=== PATIENT | male | born 1945 | race Caucasian/White ===

== ENCOUNTER 2016-12-30 13:03 | Emergency (ER) | payer MEDICARE, OTHER ==
[~2016-12-30] VITALS: Ht 170.1 cm; Wt 158.8 kg
[2016-12-30 13:50] LABS: BASO # 0.1 10*3/uL (0.0-0.1); BASO % 0.5 % (0.0-1.0); EOS # 0.2 10*3/uL (0.0-0.4); EOS % 2.1 % (1.0-4.0); HEMATOCRIT 37.9 % (42.0-52.0); HEMOGLOBIN 12.5 g/dl (14.0-18.0); LYMPH # 2.1 10*3/uL (1.3-4.4); LYMPH % 23.2 % (27.0-41.0); MEAN CELL VOLUME 96.2 fl (80.0-94.0); MEAN CORPUSCULAR HGB 31.7 pg (27.0-31.0); MEAN PLATELET VOLUME 8.4 fl (9.6-12.3); MONO # 0.7 10*3/uL (0.1-1.0); MONO % 7.2 % (3.0-9.0); NEUT # 6.1 10*3/uL (2.3-7.9); NEUT % 66.6 % (47.0-73.0); PLATELET COUNT AUTOMATED 230 10*3/uL (130-400); RED BLOOD COUNT 3.94 10*6/uL (4.50-5.90); RED CELL DISTRI WIDTH 13.3 % (0-14.5); WHITE BLOOD COUNT 9.2 10*3/uL (4.8-10.8)
== END 2016-12-30 15:40 | disposition home or self-care (01) ==
LOC: ED 13:03
PROVIDERS: Emergency Medicine
DX: R04.0 Epistaxis (principal)

== ENCOUNTER 2018-07-24 17:05 | Emergency (ER) | payer MEDICARE, OTHER ==
[~2018-07-24] VITALS: Ht 170.1 cm; Wt 168.5 kg
--- NOTE | ~2018-07-24 | EKG ---
[place], [place] ELECTROCARDIOGRAM REPORT NAME: CARTER NGO UNIT #: [id number] ROOM: DOCTOR: EPIPHANY DRAFT REPORT BIRTHDATE: [birth year] [facility] Test Date: 2018-07-24 Test Time: 17:08:59 Pat Name: CARTER GNO Department: Room: ER- Gender: M [employer] Attendant: Dot Shultz : 1945 Requested By: NE CARRILLO Order Number: [id number] Reading MD: Isaiah Damon MD Measurements Intervals [place] Rate: 95 P: -41 CO: 166 QRS: 19 QRSD: 119 T: 45 QT: 357 QTc: 449 Interpretive Statements Sinus rhythm Incomplete right bundle branch block Electronically Signed On 07-28-2018 9:34:47 PDT by Isaiah Damon MD CM:EKGRPT:ELECTROCARDIOGRAM REPORT [id number] NE GUERRERO DRAFT REPORT NE CARRILLO M.D.
--- NOTE | ~2018-07-24 | EKG ---
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
[2018-07-24] MEDS ORDERED: ALTACE10 MG PO (17:25)
[2018-07-24] MEDS ORDERED: FUROSEMIDE40 MG PO (17:25)
[2018-07-24] MEDS ORDERED: METOPROLOL SUCC50 M1 PO (17:27)
[2018-07-24 17:28] LABS: BASO % 0.3 % (0.0-1.0); EOS % 0.2 % (1.0-4.0); HEMATOCRIT 38.2 % (42.0-52.0); HEMOGLOBIN 12.4 g/dl (14.0-18.0); LYMPH # 1.5 10*3/uL (1.3-4.4); LYMPH % 13.3 % (27.0-41.0); MEAN CELL VOLUME 99.7 fl (80.0-94.0); MEAN CORPUSCULAR HGB 32.4 pg (27.0-31.0); MEAN CORPUSCULAR HGB CONC 32.5 g/dl (33.0-37.0); MEAN PLATELET VOLUME 8.5 fl (9.6-12.3); MONO # 1.2 10*3/uL (0.1-1.0); MONO % 10.6 % (3.0-9.0); NEUT # 8.2 10*3/uL (2.3-7.9); PLATELET COUNT AUTOMATED 209 10*3/uL (130-400); RED BLOOD COUNT 3.83 10*6/uL (4.50-5.90); RED CELL DISTRI WIDTH 14.2 % (0-14.5); WHITE BLOOD COUNT 10.9 10*3/uL (4.8-10.8)
[2018-07-24] MEDS ORDERED: TIKOSYN500 MCG PO (17:29)
[2018-07-24] MEDS ORDERED: LIPITOR40 MG PO (17:29)
[2018-07-24] MEDS ORDERED: EFFER-K20 MEQ PO (17:29)
[2018-07-24] MEDS ORDERED: WARFARIN SOD5 MG PO (17:30)
[2018-07-24] MEDS ORDERED: ASPIR LOW81 MG PO (17:30)
[2018-07-24] MEDS ORDERED: FLOMAX0.4 MG PO (17:31)
[2018-07-24 17:40] LABS: ACT PARTIAL THROMBO TIME 37.4 SECONDS (20.0-32.1); INTERNATIONAL NORM RATIO 2.3 (2.0-3.5)
[2018-07-24 17:48] LABS: ALBUMIN 3.4 gm/dl (3.1-4.5); ALKALINE PHOSPHATASE 91 U/L (45-117); BUN 11 mg/dl (7-24); CHLORIDE 97 mmol/L (98-107); CREATININE 0.66 mg/dL (0.70-1.30); POTASSIUM 4.3 mmol/L (3.5-5.1); SGOT/AST 12 IU/L (3-35); SGPT/ALT 20 U/L (12-78); SODIUM 137 mmol/L (136-145); TOTAL PROTEIN 8.2 gm/dL (6.4-8.2)
[2018-07-24 17:52] LABS: TROPONIN I < 0.015 ng/ml (<0.045)
[2018-07-24 18:59] LABS: BILIRUBIN NEGATIVE (NEGATIVE); BLOOD 3+ (NEGATIVE); CLARITY CLEAR (CLEAR); COLOR YELLOW (YELLOW); GLUCOSE NEGATIVE (NEGATIVE); KETONE NEGATIVE (NEGATIVE); LEUKO ESTERASE 3+ (NEGATIVE); NITRITE POSITIVE (NEGATIVE); PH 8.5 (5.0-9.0); UROBILINOGEN 0.2 E.U./dl (0.2-1.0)
[2018-07-24 19:06] LABS: RBC TNTC rbc/hpf (0-2)
[2018-07-24 19:07] LABS: BACTERIA 4+; WBC TNTC wbc/hpf (0-5)
== END 2018-07-24 20:32 | disposition short-term general hospital (02) ==
LOC: ED 17:05
PROVIDERS: Emergency Medicine
DX: N39.0 Urinary tract infection, site not specified (principal); R26.2 Difficulty in walking, not elsewhere classified; R06.02 Shortness of breath; R53.1 Weakness; L30.9 Dermatitis, unspecified; Z79.899 Other long term (current) drug therapy; Z79.82 Long term (current) use of aspirin; Z79.01 Long term (current) use of anticoagulants

== ENCOUNTER 2019-01-24 12:00 | Emergency (ER) | payer MEDICARE, OTHER ==
[~2019-01-24] VITALS: Ht 170.1 cm; Wt 167.8 kg
[~2019-01-24 12:00] MED LIST: ALTACE10 MG PO; ASPIR LOW81 MG PO; EFFER-K20 MEQ PO; FLOMAX0.4 MG PO; FUROSEMIDE40 MG PO; LIPITOR40 MG PO; METOPROLOL SUCC50 M1 PO; TIKOSYN500 MCG PO; WARFARIN SOD5 MG PO
[2019-01-24] MEDS ORDERED: KEFLEX500 M1 PO (13:58)
== END 2019-01-24 14:55 | disposition home or self-care (01) ==
LOC: ED 12:00
DX: L89.613 Pressure ulcer of right heel, stage 3 (principal); I48.91 Unspecified atrial fibrillation; E78.5 Hyperlipidemia, unspecified; I10 Essential (primary) hypertension; Z79.899 Other long term (current) drug therapy; Z79.01 Long term (current) use of anticoagulants; Z79.82 Long term (current) use of aspirin; Z95.1 Presence of aortocoronary bypass graft

== ENCOUNTER 2019-05-08 01:59 | Inpatient (IN) | payer MEDICARE, OTHER ==
[~2019-05-08] VITALS: Ht 172.7 cm; Wt 148.1 kg
[2019-05-08] VITALS (8 sets, daily range): BP systolic 94–125; BP diastolic 58–94
[~2019-05-08 01:59] MED LIST changes: +KEFLEX500 M1 PO
[2019-05-08 02:22] LABS: BASO % 0.1 % (0.0-1.0); EOS % 0.1 % (1.0-4.0); HEMATOCRIT 39.9 % (42.0-52.0); LYMPH # 1.7 10*3/uL (1.3-4.4); LYMPH % 11.1 % (27.0-41.0); MEAN CELL VOLUME 97.1 fl (80.0-94.0); MEAN CORPUSCULAR HGB 31.6 pg (27.0-31.0); MEAN CORPUSCULAR HGB CONC 32.6 g/dl (33.0-37.0); MEAN PLATELET VOLUME 8.8 fl (9.6-12.3); MONO % 6.5 % (3.0-9.0); NEUT # 12.6 10*3/uL (2.3-7.9); NEUT % 81.6 % (47.0-73.0); PLATELET COUNT AUTOMATED 262 10*3/uL (130-400); RED BLOOD COUNT 4.11 10*6/uL (4.50-5.90); WHITE BLOOD COUNT 15.4 10*3/uL (4.8-10.8)
[2019-05-08 02:32] LABS: ACT PARTIAL THROMBO TIME 42.4 SECONDS (20.0-32.1); INTERNATIONAL NORM RATIO 3.6 (2.0-3.5)
[2019-05-08 02:38] LABS: ALBUMIN 3.5 gm/dl (3.1-4.5); ALKALINE PHOSPHATASE 93 U/L (45-117); BUN 22 mg/dl (7-24); CHLORIDE 102 mmol/L (98-107); CREATININE 1.14 mg/dL (0.70-1.30); POTASSIUM 3.7 mmol/L (3.5-5.1); SGOT/AST 317 IU/L (3-35); SGPT/ALT 57 U/L (12-78); SODIUM 138 mmol/L (136-145)
[2019-05-08 07:25] LABS: CLARITY SL CLOUDY (CLEAR); COLOR YELLOW (YELLOW)
[2019-05-08 07:26] LABS: BILIRUBIN NEGATIVE (NEGATIVE); BLOOD 3+ (NEGATIVE); GLUCOSE NEGATIVE (NEGATIVE); KETONE NEGATIVE (NEGATIVE); LEUKO ESTERASE NEGATIVE (NEGATIVE); NITRITE NEGATIVE (NEGATIVE); UROBILINOGEN 0.2 E.U./dl (0.2-1.0)
[2019-05-08 07:45] LABS: RBC 31-40 rbc/hpf (0-2)
[2019-05-08 07:46] LABS: BACTERIA 1+
[2019-05-08 09:23] LABS: ALBUMIN 3.4 gm/dl (3.1-4.5); ALKALINE PHOSPHATASE 87 U/L (45-117); BUN 22 mg/dl (7-24); CHLORIDE 101 mmol/L (98-107); CREATININE 0.75 mg/dL (0.70-1.30); SGOT/AST 321 IU/L (3-35); SGPT/ALT 58 U/L (12-78); SODIUM 137 mmol/L (136-145)
[2019-05-08 09:26] LABS: PHOSPHOROUS 4.2 mg/dL (2.5-4.9)
[2019-05-08] MEDS ORDERED: COUMADIN7.5 M1 PO (11:20)
[2019-05-08 21:11] LABS: BILIRUBIN NEGATIVE (NEGATIVE); BLOOD 2+ (NEGATIVE); CLARITY SL CLOUDY (CLEAR); COLOR YELLOW (YELLOW); GLUCOSE NEGATIVE (NEGATIVE); KETONE NEGATIVE (NEGATIVE); LEUKO ESTERASE NEGATIVE (NEGATIVE); NITRITE NEGATIVE (NEGATIVE); UROBILINOGEN 0.2 E.U./dl (0.2-1.0)
[2019-05-08 21:21] LABS: BACTERIA 2+; URIC ACID CRYSTALS 1+
[2019-05-09] VITALS: BP 148/82
[2019-05-09 04:00] VITALS: BP 122/74
[2019-05-09 04:44] LABS: BASO % 0.2 % (0.0-1.0); EOS # 0.1 10*3/uL (0.0-0.4); EOS % 0.9 % (1.0-4.0); HEMATOCRIT 34.5 % (42.0-52.0); HEMOGLOBIN 10.9 g/dl (14.0-18.0); LYMPH % 19.3 % (27.0-41.0); MEAN CELL VOLUME 99.7 fl (80.0-94.0); MEAN CORPUSCULAR HGB 31.5 pg (27.0-31.0); MEAN CORPUSCULAR HGB CONC 31.6 g/dl (33.0-37.0); MEAN PLATELET VOLUME 8.6 fl (9.6-12.3); MONO # 0.9 10*3/uL (0.1-1.0); MONO % 8.6 % (3.0-9.0); NEUT # 7.3 10*3/uL (2.3-7.9); NEUT % 70.7 % (47.0-73.0); PLATELET COUNT AUTOMATED 206 10*3/uL (130-400); RED BLOOD COUNT 3.46 10*6/uL (4.50-5.90); RED CELL DISTRI WIDTH 15.2 % (0-14.5); WHITE BLOOD COUNT 10.3 10*3/uL (4.8-10.8)
[2019-05-09 05:02] LABS: ALBUMIN 2.9 gm/dl (3.1-4.5); ALKALINE PHOSPHATASE 75 U/L (45-117); BUN 13 mg/dl (7-24); CHLORIDE 102 mmol/L (98-107); CHOLESTEROL 94 mg/dL (<200); CREATININE 0.47 mg/dL (0.70-1.30); HDL CHOLESTEROL 45 mg/dl (40-60); LDL CHOLESTEROL 18 mg/dL (9-159); POTASSIUM 3.7 mmol/L (3.5-5.1); SGOT/AST 169 IU/L (3-35); SGPT/ALT 46 U/L (12-78); SODIUM 137 mmol/L (136-145); TRIGLYCERIDES 155 mg/dl (<150); VLDL CHOLESTEROL 31 mg/dL (6-40)
[2019-05-09 05:03] LABS: INTERNATIONAL NORM RATIO 4.7 (2.0-3.5)
[2019-05-09 05:14] LABS: CPK 6777 U/L (39-308)
[2019-05-09 07:02] LABS: VITAMIN D, 25-HYDROXY 7.5 ng/mL (30-100)
[2019-05-09 08:00] VITALS: BP 123/73
[2019-05-09 12:00] VITALS: BP 130/74
[2019-05-09 20:00] VITALS: BP 129/74
[2019-05-10] VITALS: BP 123/64
[2019-05-10 04:00] VITALS: BP 123/68
[2019-05-10 05:11] LABS: ALBUMIN 2.8 gm/dl (3.1-4.5); ALKALINE PHOSPHATASE 72 U/L (45-117); BUN 9 mg/dl (7-24); CHLORIDE 101 mmol/L (98-107); CREATININE 0.34 mg/dL (0.70-1.30); PHOSPHOROUS 3.1 mg/dL (2.5-4.9); POTASSIUM 3.9 mmol/L (3.5-5.1); SGOT/AST 103 IU/L (3-35); SGPT/ALT 41 U/L (12-78); SODIUM 137 mmol/L (136-145); TOTAL PROTEIN 7.1 gm/dL (6.4-8.2)
[2019-05-10 06:17] LABS: BASO % 0.3 % (0.0-1.0); EOS # 0.2 10*3/uL (0.0-0.4); EOS % 2.1 % (1.0-4.0); HEMATOCRIT 32.7 % (42.0-52.0); HEMOGLOBIN 10.2 g/dl (14.0-18.0); LYMPH # 2.1 10*3/uL (1.3-4.4); LYMPH % 24.7 % (27.0-41.0); MEAN CELL VOLUME 100.3 fl (80.0-94.0); MEAN CORPUSCULAR HGB 31.3 pg (27.0-31.0); MEAN CORPUSCULAR HGB CONC 31.2 g/dl (33.0-37.0); MEAN PLATELET VOLUME 9.4 fl (9.6-12.3); MONO # 0.9 10*3/uL (0.1-1.0); NEUT # 5.4 10*3/uL (2.3-7.9); NEUT % 62.7 % (47.0-73.0); PLATELET COUNT AUTOMATED 212 10*3/uL (130-400); RED BLOOD COUNT 3.26 10*6/uL (4.50-5.90); RED CELL DISTRI WIDTH 15.3 % (0-14.5); WHITE BLOOD COUNT 8.6 10*3/uL (4.8-10.8)
[2019-05-10 06:27] LABS: INTERNATIONAL NORM RATIO 3.4 (2.0-3.5)
[2019-05-10 08:00] VITALS: BP 132/72
[2019-05-10 12:00] VITALS: BP 113/54
[2019-05-10 16:00] VITALS: BP 116/57
[2019-05-10 20:00] VITALS: BP 109/63
[2019-05-11] VITALS: BP 116/57
[2019-05-11 04:00] VITALS: BP 122/86
[2019-05-11 05:24] LABS: ALBUMIN 2.7 gm/dl (3.1-4.5); ALKALINE PHOSPHATASE 65 U/L (45-117); BUN 8 mg/dl (7-24); CHLORIDE 99 mmol/L (98-107); CREATININE 0.35 mg/dL (0.70-1.30); PHOSPHOROUS 3.5 mg/dL (2.5-4.9); POTASSIUM 3.8 mmol/L (3.5-5.1); SGOT/AST 70 IU/L (3-35); SGPT/ALT 40 U/L (12-78); SODIUM 137 mmol/L (136-145)
[2019-05-11 05:40] LABS: CPK 2302 U/L (39-308)
[2019-05-11 06:02] LABS: BASO % 0.4 % (0.0-1.0); EOS # 0.2 10*3/uL (0.0-0.4); EOS % 2.9 % (1.0-4.0); HEMATOCRIT 32.8 % (42.0-52.0); HEMOGLOBIN 10.4 g/dl (14.0-18.0); LYMPH # 1.9 10*3/uL (1.3-4.4); LYMPH % 25.2 % (27.0-41.0); MEAN CELL VOLUME 101.5 fl (80.0-94.0); MEAN CORPUSCULAR HGB 32.2 pg (27.0-31.0); MEAN CORPUSCULAR HGB CONC 31.7 g/dl (33.0-37.0); MEAN PLATELET VOLUME 9.4 fl (9.6-12.3); MONO # 0.8 10*3/uL (0.1-1.0); NEUT # 4.6 10*3/uL (2.3-7.9); NEUT % 61.2 % (47.0-73.0); PLATELET COUNT AUTOMATED 214 10*3/uL (130-400); RED BLOOD COUNT 3.23 10*6/uL (4.50-5.90); RED CELL DISTRI WIDTH 15.1 % (0-14.5); WHITE BLOOD COUNT 7.6 10*3/uL (4.8-10.8)
[2019-05-11 06:21] LABS: INTERNATIONAL NORM RATIO 2.6 (2.0-3.5)
[2019-05-11 08:00] VITALS: BP 126/72
[2019-05-11 12:00] VITALS: BP 138/82
[2019-05-11 16:00] VITALS: BP 112/63
[2019-05-11 20:00] VITALS: BP 134/73
[2019-05-12] VITALS: BP 128/61
[2019-05-12 04:48] LABS: BASO % 0.6 % (0.0-1.0); EOS # 0.2 10*3/uL (0.0-0.4); EOS % 3.2 % (1.0-4.0); HEMATOCRIT 32.5 % (42.0-52.0); HEMOGLOBIN 10.2 g/dl (14.0-18.0); LYMPH # 1.9 10*3/uL (1.3-4.4); LYMPH % 26.2 % (27.0-41.0); MEAN CELL VOLUME 102.2 fl (80.0-94.0); MEAN CORPUSCULAR HGB 32.1 pg (27.0-31.0); MEAN CORPUSCULAR HGB CONC 31.4 g/dl (33.0-37.0); MEAN PLATELET VOLUME 8.9 fl (9.6-12.3); MONO # 0.8 10*3/uL (0.1-1.0); MONO % 10.7 % (3.0-9.0); NEUT # 4.2 10*3/uL (2.3-7.9); PLATELET COUNT AUTOMATED 237 10*3/uL (130-400); RED BLOOD COUNT 3.18 10*6/uL (4.50-5.90); WHITE BLOOD COUNT 7.2 10*3/uL (4.8-10.8)
[2019-05-12 04:59] LABS: BUN 8 mg/dl (7-24); CHLORIDE 100 mmol/L (98-107); CREATININE 0.41 mg/dL (0.70-1.30); PHOSPHOROUS 3.8 mg/dL (2.5-4.9); POTASSIUM 3.9 mmol/L (3.5-5.1); SODIUM 138 mmol/L (136-145)
[2019-05-12 06:26] LABS: INTERNATIONAL NORM RATIO 1.9 (2.0-3.5)
[2019-05-12 08:00] VITALS: BP 155/91
[2019-05-12] MEDS ORDERED: ESCITALOPRAM OX10 MG PO (10:42)
[2019-05-12] MEDS ORDERED: WARFARIN SOD5 MG PO (10:42)
[2019-05-12] MEDS ORDERED: ALDACTONE25 MG PO (10:42)
[2019-05-12 12:00] VITALS: BP 110/57
== END 2019-05-12 15:48 | disposition other institution (70) | DRG 280 ==
LOC: ED 01:59 → 4E 03:38 → ICCU 03:38 → EDHOLD 03:38 → 4E 04:23 → ICCU 07:33
PROVIDERS: Emergency Medicine; Hospitalist; Internal Medicine; Internal Medicine Nephrology; ADMIT Family Medicine
PROC: 3E073KZ Introduction of Other Diagnostic Substance into Coronary Artery, Percutaneous Approach (ICD-10-PCS; principal; 2019-05-11)
PROC: 4A02XM4 Measurement of Cardiac Total Activity, External Approach (ICD-10-PCS; principal; 2019-05-11)
DX: I21.4 Non-ST elevation (NSTEMI) myocardial infarction (principal); J18.9 Pneumonia, unspecified organism; J96.01 Acute respiratory failure with hypoxia; I50.23 Acute on chronic systolic (congestive) heart failure; E87.2 Acidosis; E44.0 Moderate protein-calorie malnutrition; J44.0 Chronic obstructive pulmonary disease with (acute) lower respiratory infection; N17.9 Acute kidney failure, unspecified; I42.9 Cardiomyopathy, unspecified; R45.851 Suicidal ideations; Z68.42 Body mass index [BMI] 45.0-49.9, adult; L97.419 Non-pressure chronic ulcer of right heel and midfoot with unspecified severity; E78.00 Pure hypercholesterolemia, unspecified; G47.33 Obstructive sleep apnea (adult) (pediatric); R07.89 Other chest pain; I70.203 Unspecified atherosclerosis of native arteries of extremities, bilateral legs; B96.4 Proteus (mirabilis) (morganii) as the cause of diseases classified elsewhere; I11.0 Hypertensive heart disease with heart failure; T79.6XXA Traumatic ischemia of muscle, initial encounter; W18.30XA Fall on same level, unspecified, initial encounter; F32.9 Major depressive disorder, single episode, unspecified; I95.9 Hypotension, unspecified; I25.10 Atherosclerotic heart disease of native coronary artery without angina pectoris; E78.5 Hyperlipidemia, unspecified; I48.0 Paroxysmal atrial fibrillation; N40.0 Benign prostatic hyperplasia without lower urinary tract symptoms; M17.11 Unilateral primary osteoarthritis, right knee; R26.2 Difficulty in walking, not elsewhere classified; R74.0 Nonspecific elevation of levels of transaminase and lactic acid dehydrogenase [LDH]; R73.9 Hyperglycemia, unspecified; D53.9 Nutritional anemia, unspecified; E66.01 Morbid (severe) obesity due to excess calories; Z79.01 Long term (current) use of anticoagulants; Z87.440 Personal history of urinary (tract) infections; Z95.1 Presence of aortocoronary bypass graft; Z87.891 Personal history of nicotine dependence; Z81.1 Family history of alcohol abuse and dependence; Z80.8 Family history of malignant neoplasm of other organs or systems; Z79.82 Long term (current) use of aspirin; Z79.899 Other long term (current) drug therapy; Z71.3 Dietary counseling and surveillance

== ENCOUNTER 2020-02-06 18:02 | Emergency (ER) | payer MEDICARE, OTHER ==
[~2020-02-06] VITALS: Ht 200.6 cm; Wt 165.1 kg
[~2020-02-06 18:02] MED LIST changes: +ALDACTONE25 MG PO; +COUMADIN7.5 M1 PO; +ESCITALOPRAM OX10 MG PO
[2020-02-06 18:52] LABS: HEMATOCRIT 34.8 % (42.0-52.0); MEAN CELL VOLUME 108.4 fl (80.0-94.0); MEAN CORPUSCULAR HGB 32.7 pg (27.0-31.0); MEAN CORPUSCULAR HGB CONC 30.2 g/dl (33.0-37.0); MEAN PLATELET VOLUME 8.3 fl (9.6-12.3); PLATELET COUNT AUTOMATED 161 10*3/uL (130-400); RED BLOOD COUNT 3.21 10*6/uL (4.50-5.90); RED CELL DISTRI WIDTH 14.2 % (0-14.5); WHITE BLOOD COUNT 6.1 10*3/uL (4.8-10.8)
[2020-02-06 19:13] LABS: ALKALINE PHOSPHATASE 91 U/L (45-117); BUN 9 mg/dl (7-24); CHLORIDE 96 mmol/L (98-107); LIPASE 53 U/L (73-393); POTASSIUM 4.6 mmol/L (3.5-5.1); SGOT/AST 12 IU/L (3-35); SGPT/ALT 17 U/L (12-78); SODIUM 136 mmol/L (136-145); TOTAL PROTEIN 8.5 gm/dL (6.4-8.2)
[2020-02-06 19:14] LABS: BASOPHILS 1 % (0-1); TOTAL CELLS COUNTED 100 #CELLS; TROPONIN I < 0.015 ng/ml (<0.045)
[2020-02-06 19:15] LABS: PLATELET SUFFICIENCY NORMAL (NORMAL)
[2020-02-06 19:21] LABS: ACT PARTIAL THROMBO TIME 40.2 SECONDS (20.0-32.1); INTERNATIONAL NORM RATIO 1.8 (2.0-3.5)
[2020-02-06 20:03] LABS: BILIRUBIN Negative (Negative); BLOOD 1+ (Negative); CLARITY Cloudy (Clear); COLOR Yellow (Yellow); GLUCOSE Negative (Negative); KETONE Negative (Negative); LEUKO ESTERASE Negative (Negative); NITRITE Negative (Negative); SPECIFIC GRAVITY 1.015 (1.001-1.030)
[2020-02-06 20:11] LABS: BACTERIA TRACE; FINE GRANULAR CAST 0-2; RBC 41-50 rbc/hpf (0-2); WBC 0-2 wbc/hpf (0-5)
== END 2020-02-06 21:23 ==
LOC: ED 18:02
PROVIDERS: Nurse Practitioner Family
DX: U07.1 COVID-19 (principal); R41.0 Disorientation, unspecified; I25.2 Old myocardial infarction; E66.01 Morbid (severe) obesity due to excess calories; I11.0 Hypertensive heart disease with heart failure; I50.9 Heart failure, unspecified; I73.9 Peripheral vascular disease, unspecified; I48.91 Unspecified atrial fibrillation; J44.9 Chronic obstructive pulmonary disease, unspecified; E78.5 Hyperlipidemia, unspecified; M17.11 Unilateral primary osteoarthritis, right knee; Z79.899 Other long term (current) drug therapy; Z79.01 Long term (current) use of anticoagulants; Z79.82 Long term (current) use of aspirin; Z87.891 Personal history of nicotine dependence; Z68.41 Body mass index [BMI] 40.0-44.9, adult; Z98.61 Coronary angioplasty status

== ENCOUNTER 2020-02-08 18:57 | Inpatient (IN) | payer MEDICARE, OTHER ==
[~2020-02-08] VITALS: Ht 172.7 cm; Wt 152.6 kg
[2020-02-08 18:58] VITALS: BP 172/86
[2020-02-08 20:02] LABS: HEMATOCRIT 35.3 % (42.0-52.0); MEAN CORPUSCULAR HGB 32.7 pg (27.0-31.0); MEAN CORPUSCULAR HGB CONC 29.5 g/dl (33.0-37.0); MEAN PLATELET VOLUME 8.6 fl (9.6-12.3); PLATELET COUNT AUTOMATED 161 10*3/uL (130-400); RED BLOOD COUNT 3.18 10*6/uL (4.50-5.90); RED CELL DISTRI WIDTH 14.2 % (0-14.5); WHITE BLOOD COUNT 4.2 10*3/uL (4.8-10.8)
--- NOTE | 2020-02-08 20:04 | NUR ---
MD HESTER AT BEDSIDE TO ASSESS PT.PT O2 SAT 89-91% ON 6L O2 VIA NC.PER MD WILL MONITOR PT O2 SAT AT THIS TIME.PT REPOSITIONED IN BED.
--- NOTE | 2020-02-08 20:06 | NUR ---
PT DAUGHTER CALLED AND REPORT PT SEEN IN [place] AND DISCHARGED TODAY.DIAGNOSIS OF PNEUMONIA SHE REPORTS.DAUGHTER STATES PT IS TO BE ON 10-15L O2 VIA NC BUT DOES NOT BELIEVE NURSING FACILITY IS ABLE TO MAINTAIN PT O2 SAT AT THIS TIME.DAUGHTER IS CONCERNED FOR PT RETURN TO FACILITY IF THEY ARE UNABLE TO MANAGE HIS OXYGEN NEEDS.MD HESTER MADE AWARE OF DAUGHTER'S CONCERNS.
[2020-02-08 20:17] VITALS: BP 127/73
[2020-02-08 20:21] LABS: TOTAL CELLS COUNTED 100 #CELLS
[2020-02-08 20:22] LABS: PLATELET SUFFICIENCY NORMAL (NORMAL)
[2020-02-08 20:41] LABS: ALBUMIN 3.1 gm/dl (3.1-4.5); ALKALINE PHOSPHATASE 86 U/L (45-117); BUN 10 mg/dl (7-24); CHLORIDE 90 mmol/L (98-107); POTASSIUM 4.5 mmol/L (3.5-5.1); SGOT/AST 14 IU/L (3-35); SGPT/ALT 17 U/L (12-78); SODIUM 134 mmol/L (136-145); TOTAL PROTEIN 9.1 gm/dL (6.4-8.2)
[2020-02-08 20:44] LABS: TROPONIN I < 0.015 ng/ml (<0.045)
--- NOTE | 2020-02-08 21:05 | NUR ---
PT LORRAINE PROVIDED UPDATE ON PT AND ADVISED OF CURRENT PLAN OF CARE TO OBTAIN ADDITIONAL LAB WORK.
--- NOTE | 2020-02-08 21:48 | NUR ---
PT LINENS CHANGED.WOUND CHECK COMPLETED.PT APPEARS TO HAVE MULTIPLE AREAS OF RED RASH LIKE PSORIASIS ON HIS TORSO AND LEGS.PHOTOS TAKEN OF MOISTURE ASSOC RASH ON ABD FOLDS.PRESSURE WOUNDS ON COCCYX AND BUTTOCK.RASH ON LOWER POSTERIOR THIGH AREAS.RASH ON LOWER BACK.
[2020-02-08 22:02] LABS: ABG BASE EXCESS 14.3 mmol/L (-2.0-2.0); ARTERIAL BLOOD GAS PH 7.306 (7.35-7.45)
--- NOTE | 2020-02-08 22:15 | NUR ---
RESPIRATORY AT BEDSIDE AND STATE PT WAS PLACED ON 15L HIGH FLOW CANNULA AT THIS TIME.RESPIRATORY WAS UPDATED PER MD HESTER PT IS TO BE PLACED ON BIPAP DUE TO ABG RESULTS.ADVISED THEY WILL TRY TO OBTAIN MACHINE FOR PT.
[2020-02-08 22:16] VITALS: BP 132/65
--- NOTE | 2020-02-08 22:35 | NUR ---
PT DAUGHTER UPDATED ON PT CURRENT PLAN OF CARE AND ADMISSION.
--- NOTE | 2020-02-08 23:33 | NUR ---
RESPIRATORY IS AT BEDSIDE FOR BIPAP PLACEMENT.
[2020-02-08] MEDS ORDERED: COLACE100 MG PO (23:35)
[2020-02-08] MEDS ORDERED: Coumadin7.5 MG PO (23:36)
[2020-02-08] MEDS ORDERED: Coumadin10 MG PO (23:37)
[2020-02-08] MEDS ORDERED: DULCOLAX10 M1 R (23:38)
[2020-02-08] MEDS ORDERED: EFFER-K25 MEQ PO (23:39)
[2020-02-08] MEDS ORDERED: NEURONTIN100 MG PO (23:39)
[2020-02-08] MEDS ORDERED: LEXAPRO20 MG PO (23:40)
[2020-02-08] MEDS ORDERED: LASIX20 MG PO (23:40)
[2020-02-08] MEDS ORDERED: TRAMADOL HCL50 MG PO (23:40)
[2020-02-08] MEDS ORDERED: TRAZODONE50 MG PO (23:41)
[2020-02-08] MEDS ORDERED: TRELEGY ELLIPT1 EACH INH (23:41)
[2020-02-08] MEDS ORDERED: VALSARTAN160 MG PO (23:42)
[2020-02-08] MEDS ORDERED: TYLENOL325 M3 PO (23:42)
[2020-02-08] MEDS ORDERED: VENT7GM INH (23:42)
[2020-02-08] MEDS ORDERED: WELLBUTRIN XL150 MG PO (23:43)
[2020-02-09 00:24] LABS: INTERNATIONAL NORM RATIO 2.3 (2.0-3.5)
[2020-02-09 00:32] LABS: ACT PARTIAL THROMBO TIME 40.9 SECONDS (20.0-32.1)
--- NOTE | 2020-02-09 01:02 | NUR ---
NURSE TO NURSE REPORT GIVEN TO MARCELLE POSADA.
[2020-02-09 01:30] VITALS: BP 134/54; BP 136/70
--- NOTE | 2020-02-09 01:32 | NUR ---
PT ARRIVED TO THE FLOOR AT 0130HRS
--- NOTE | 2020-02-09 01:41 | NUR ---
PT IV BECAME DISLODGED IN RAC.NEW IV ESTABLISHED IN RT WRIST WITH 22GAUGE ANGIOCATH.UNABLE TO PULL EMAR ORDER OF ROCEPHIN.HEEL EDGE INKER MACHINE NOTIFIED.
[2020-02-09 01:45] VITALS: BP 134/54
--- NOTE | 2020-02-09 02:51 | NUR ---
CONSULTED DR. TRISTAN, MADE HIM AWARE OF THE PATIENTS MOST RECENT ABG RESULTS. HE GAVE ORDERS TO ELLEN FROM RESPIRATORY. HE IS TO WEAR THE BIPAP WITH SETTINGS AT 22/10 AND OBTAIN NEW ABGS IN THE A.M.
--- NOTE | 2020-02-09 02:54 | NUR ---
OBTAINED THE PATIENT'S ROCEPHIN FROM NURSING LENS HARDENER, GOING TO INFUSE NOW. WILL FOLLOW UP
[2020-02-09 05:59] LABS: ABG BASE EXCESS 14.7 mmol/L (-2.0-2.0); ARTERIAL BLOOD GAS PH 7.346 (7.35-7.45)
--- NOTE | 2020-02-09 06:10 | NUR ---
LAB CALLED WITH A CRITICAL PCO2 VALUE OF 81. ELLEN FROM RESPIRATORY SAID HE WOULD RELAY THE MESSAGE TO DOCTOR KUN WHEN HE SPOKE TO HIM THSI A.M. CONCERNING THE PT'S BIPAP SETTINGS.
[2020-02-09 07:38] LABS: ACT PARTIAL THROMBO TIME 42.7 SECONDS (20.0-32.1); INTERNATIONAL NORM RATIO 2.3 (2.0-3.5)
[2020-02-09 07:59] LABS: ALBUMIN 2.8 gm/dl (3.1-4.5); BUN 12 mg/dl (7-24); CHLORIDE 91 mmol/L (98-107); CHOLESTEROL 118 mg/dL (<200); POTASSIUM 4.1 mmol/L (3.5-5.1); SODIUM 135 mmol/L (136-145)
[2020-02-09 08:00] VITALS: BP 141/67
[2020-02-09 08:01] LABS: BASO % 0.2 % (0.0-1.0); HEMATOCRIT 32.5 % (42.0-52.0); LYMPH # 0.7 10*3/uL (1.3-4.4); LYMPH % 17.5 % (27.0-41.0); MEAN CORPUSCULAR HGB 32.9 pg (27.0-31.0); MEAN CORPUSCULAR HGB CONC 31.1 g/dl (33.0-37.0); MEAN PLATELET VOLUME 8.8 fl (9.6-12.3); MONO # 0.3 10*3/uL (0.1-1.0); MONO % 5.9 % (3.0-9.0); NEUT # 3.2 10*3/uL (2.3-7.9); NEUT % 75.2 % (47.0-73.0); PLATELET COUNT AUTOMATED 169 10*3/uL (130-400); RED BLOOD COUNT 3.07 10*6/uL (4.50-5.90); RED CELL DISTRI WIDTH 13.8 % (0-14.5); WHITE BLOOD COUNT 4.2 10*3/uL (4.8-10.8)
[2020-02-09 08:07] LABS: MEAN CELL VOLUME 105.9 fl (80.0-94.0)
[2020-02-09 08:10] LABS: ALKALINE PHOSPHATASE 77 U/L (45-117); CREATININE 0.38 mg/dL (0.70-1.30); FREE T4 0.97 ng/dl (0.76-1.46); HDL CHOLESTEROL 58 mg/dl (40-60); LDH 144 U/L (87-241); LDL CHOLESTEROL 40 mg/dL (9-159); SGOT/AST 13 IU/L (3-35); SGPT/ALT 16 U/L (12-78); THYROID STIM HORMONE (HS) 0.413 uIU/ml (0.358-4.75); TOTAL PROTEIN 8.4 gm/dL (6.4-8.2); TRIGLYCERIDES 98 mg/dl (<150); VLDL CHOLESTEROL 20 mg/dL (6-40)
[2020-02-09 08:17] LABS: FERRITIN 459.7 ng/mL (22.0-322.0); VITAMIN D, 25-HYDROXY 16.6 ng/mL (30-100)
--- NOTE | 2020-02-09 09:00 | NUR ---
patient is a alf resident of [facility] and will return when discharged, case management will follow
[2020-02-09 12:00] VITALS: BP 136/55
[2020-02-09 16:00] VITALS: BP 145/65
[2020-02-09 16:16] LABS: ABG BASE EXCESS 16.3 mmol/L (-2.0-2.0); ARTERIAL BLOOD GAS PH 7.378 (7.35-7.45)
--- NOTE | 2020-02-09 16:45 | NUR ---
DR. TRISTAN CALLED WITH ABG RESULTS.
--- NOTE | 2020-02-09 18:16 | NUR ---
NOTIFIED DR VIVAR OF RESULTS FOR CT CALLED BY [facility].
--- NOTE | 2020-02-09 19:40 | NUR ---
24 HR chart check completed.
[2020-02-09 20:00] VITALS: BP 155/73
--- NOTE | 2020-02-09 23:42 | NUR ---
Pt does not want to go on the BiPap. We are "scaring him".
[2020-02-10] VITALS: BP 160/84
--- NOTE | 2020-02-10 00:10 | NUR ---
RESPIRATORY CALLED TO LET ME KNOW THAT THE PATIENT HAS REFUSED THE BIPAP AT THIS TIME. WILL CONTINUE TO MONITOR.
--- NOTE | 2020-02-10 04:33 | NUR ---
CONTACTED THE RESIDENT ON FOR DR. STEARNS CONCERNING THE PATIENT'S RHYTHM CHANGE. THE PT IS NOW IN WHAT LOOKS TO BE A-FIB, A STAT EKG HAS BEEN ORDERED. ADDITIONALLY, THE PT IS VERY ANXIOUS. STATING "THAT HE IS HAVING REALLY BAD DREAMS." THE MORE HE EXPLAINED, IT SEEMS HE IS HAVING VISUAL & AUDITORY HALLUCINATIONS.
[2020-02-10 06:14] LABS: ALBUMIN 2.9 gm/dl (3.1-4.5); ALKALINE PHOSPHATASE 66 U/L (45-117); BUN 15 mg/dl (7-24); CHLORIDE 95 mmol/L (98-107); CPK 42 U/L (39-308); CREATININE 0.35 mg/dL (0.70-1.30); LDH 172 U/L (87-241); SGOT/AST 18 IU/L (3-35); SGPT/ALT 19 U/L (12-78); SODIUM 136 mmol/L (136-145); TOTAL PROTEIN 8.2 gm/dL (6.4-8.2)
[2020-02-10 06:18] LABS: HEMATOCRIT 33.2 % (42.0-52.0); LYMPH # 0.8 10*3/uL (1.3-4.4); LYMPH % 13.5 % (27.0-41.0); MEAN CELL VOLUME 105.7 fl (80.0-94.0); MEAN CORPUSCULAR HGB 32.5 pg (27.0-31.0); MEAN CORPUSCULAR HGB CONC 30.7 g/dl (33.0-37.0); MEAN PLATELET VOLUME 8.7 fl (9.6-12.3); MONO # 0.6 10*3/uL (0.1-1.0); MONO % 10.2 % (3.0-9.0); NEUT # 4.3 10*3/uL (2.3-7.9); NEUT % 75.6 % (47.0-73.0); PLATELET COUNT AUTOMATED 189 10*3/uL (130-400); RED BLOOD COUNT 3.14 10*6/uL (4.50-5.90); RED CELL DISTRI WIDTH 13.2 % (0-14.5); WHITE BLOOD COUNT 5.7 10*3/uL (4.8-10.8)
--- NOTE | 2020-02-10 06:36 | NUR ---
CONTACTED DR. ALBERTS CONCERNING THE PATIENT'S CRITICAL CO2 LEVEL OF (43). HE WOULD LIKE A NEW SET OF ABGS DRAWN. THE ORDER IS IN, CURRENTLY AWAITING LAB.
[2020-02-10 07:21] LABS: INTERNATIONAL NORM RATIO 2.3 (2.0-3.5)
[2020-02-10 08:00] VITALS: BP 147/66
[2020-02-10 08:18] LABS: ABG BASE EXCESS 17.2 mmol/L (-2.0-2.0); ARTERIAL BLOOD GAS PH 7.376 (7.35-7.45)
--- NOTE | 2020-02-10 09:00 | NUR ---
patient is a resident of [facility] and will return if medically stable, currently on 15l of oxygen and intermittent bipap. case management will follow
[2020-02-10 12:00] VITALS: BP 134/63
[2020-02-10 16:00] VITALS: BP 133/71
--- NOTE | 2020-02-10 19:23 | NUR ---
PA CHECKED THE PATIENT'S TEMP AND REPORTED IT 100.7.
[2020-02-10 20:00] VITALS: BP 144/62
--- NOTE | 2020-02-10 21:11 | NUR ---
GAVE THE PT PRN TYLENOL FOR A 100.7 TEMP. WILL FOLLOW UP
--- NOTE | 2020-02-10 21:12 | NUR ---
JAVIER WAS RECEIVING IV REMDESIVIR UNTIL HIS IV BLEW. I ATTEMPTED TWO TIMES TO REGAIN ACCESS WITH NO SUCCESS. I CONTACTED A ICU NURSE TO POSSIBLY ASSESS THE PT AND USE THE DOPPLER TO GAIN ACCESS.
[2020-02-11] VITALS: BP 135/61
--- NOTE | 2020-02-11 00:48 | NUR ---
PT WANTED TO COME OFF THE BIPAP, STATED THAT IT WAS HURTING HIS FACE.
--- NOTE | 2020-02-11 01:45 | NUR ---
THE PATIENTS TEMP CAME BACK DOWN TO 98.3 UPON REASSESSMENT.
--- NOTE | 2020-02-11 02:22 | NUR ---
24 HR chart check completed.
--- NOTE | 2020-02-11 04:00 | NUR ---
PT RESTING IN BED WTIH OXYGEN IN USE EEYES CLOSED. CALL LIGHT IN REACH.
[2020-02-11 06:04] LABS: ALBUMIN 2.7 gm/dl (3.1-4.5); BUN 15 mg/dl (7-24); CHLORIDE 91 mmol/L (98-107); CREATININE 0.44 mg/dL (0.70-1.30); LDH 160 U/L (87-241); POTASSIUM 3.7 mmol/L (3.5-5.1); SGOT/AST 23 IU/L (3-35); SGPT/ALT 28 U/L (12-78); SODIUM 134 mmol/L (136-145); TOTAL PROTEIN 7.9 gm/dL (6.4-8.2)
[2020-02-11 06:05] LABS: ALKALINE PHOSPHATASE 65 U/L (45-117)
--- NOTE | 2020-02-11 06:11 | NUR ---
CALLED DR. ALBERTS MADE AWARE CRITICAL CO2 AND L. ACID. NO NEW ORDERS.
[2020-02-11 06:12] LABS: CPK 21 U/L (39-308)
--- NOTE | 2020-02-11 06:30 | NUR ---
PT ASSISTED TO BSC WITH MAX 3 ASSIST. PT HAD LARGE BM, ASSISTED BACK TO BED WITH MAX ASSIST. PT IS UNABLE TO GET UP NEEDS TO BE BEDPAN. OXYGEN IN USE. HIGHFLOW NASAL CANNULA. PT REFUSED BIPAP. CALL LIGHT IN REACH.
[2020-02-11 06:38] LABS: HEMATOCRIT 30.3 % (42.0-52.0); LYMPH % 23.7 % (27.0-41.0); MEAN CELL VOLUME 106.3 fl (80.0-94.0); MEAN PLATELET VOLUME 8.7 fl (9.6-12.3); MONO # 0.3 10*3/uL (0.1-1.0); MONO % 7.6 % (3.0-9.0); NEUT # 2.9 10*3/uL (2.3-7.9); NEUT % 67.6 % (47.0-73.0); PLATELET COUNT AUTOMATED 173 10*3/uL (130-400); RED BLOOD COUNT 2.85 10*6/uL (4.50-5.90); RED CELL DISTRI WIDTH 13.3 % (0-14.5); WHITE BLOOD COUNT 4.4 10*3/uL (4.8-10.8)
[2020-02-11 07:13] LABS: INTERNATIONAL NORM RATIO 2.1 (2.0-3.5)
--- NOTE | 2020-02-11 07:30 | NUR ---
RESTING INB ED. OXYGEN IN USE. NO C/O AT THIS TIME. WILL CON'T TO MONITOR. CALL LIGHT IN REACH. SEE SHIFT ASSEDSSMENT.
[2020-02-11 07:49] LABS: ABG BASE EXCESS 15.8 mmol/L (-2.0-2.0); ARTERIAL BLOOD GAS PH 7.39 (7.35-7.45)
[2020-02-11 08:00] VITALS: BP 118/55
--- NOTE | 2020-02-11 08:05 | NUR ---
CALLED SHARITA WOODS MADE AWARE CRITICAL PCO2. CALL KUN
--- NOTE | 2020-02-11 08:07 | NUR ---
CALLED DR. TRISTAN MADE AWARE PT CRITICAL PCO2
--- NOTE | 2020-02-11 08:31 | NUR ---
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 MAIN ENTREE COOK AND CASHIER FAXED UPDATES TO [facility] FOR REVIEW.
--- NOTE | 2020-02-11 08:40 | NUR ---
CALLED DR. TRISTAN MADE AWARE PT [id number]. PT WON'T KEEP BIPAP ON. ON 15L HIGHFLOW OXYGEN. MADE AWARE PT CODE STATUS. NO NEW ORDERS.
--- NOTE | 2020-02-11 09:00 | NUR ---
patient is a retirement resident of [facility] and will return when discharged. he currently is on 15l of oxygen and intermittent bipap. case management will follow
--- NOTE | 2020-02-11 09:50 | NUR ---
TOLERATED ROUTINE MEDS WITH NO PROBLEM. TALKED PT INTO WEARING BIPAP. HIS PULSE OX 86-89% ON 15LITER HIGHFLOW. DOCTORS AWARE. CALL LIGHT IN REACH. WILL MONITOR.
--- NOTE | 2020-02-11 11:47 | NUR ---
PT MEDICATED WITH ATIVAN PO PER PRN ORDER, SEE EMAR. FOR INCREASE IN ANXIETY. BIPAP IN USE. CALL LIGHT IN REACH.
[2020-02-11 12:00] VITALS: BP 128/59
--- NOTE | 2020-02-11 15:45 | NUR ---
MEDICATED WITH TYLENOL FOR TEMP. SEE EMAR. CALL LIGHT IN REACH. OXYGEN IN USE. PT BATHED AND CLEANED UP. CALL LIGHT IN REACH.
[2020-02-11 16:00] VITALS: BP 144/65
--- NOTE | 2020-02-11 16:40 | NUR ---
TOLERATED ROUTINE MED WITH NO PROBLEM. NO C/O AT THIS TIME. RESTING COMFORTABLY IN BED. NO C/O AT THIS TIME. OXYGEN IN USE. CALL LIGHT IN REACH. BED ALARM ON.
[2020-02-11 20:00] VITALS: BP 130/50
--- NOTE | 2020-02-11 20:47 | NUR ---
PT SEEN AND ASSESSED. PT IV WAS FOUND TO BE OUT. NEW IV WAS ATTEMPTED BY THIS RN X2 WITH NO SUCCESS. OTHER RN ON UNIT NOTIFIED FOR AN ATTEMPT. PT REQUEST TO SPEAK TO DAUGHTER. CALL ATTEMPTED BY UNABLE TO MAKE CALL HER PHONE LINE IS CONSIDERED LONG DISTANCE. RN CALLED DAUGHTER REQUESTING HER TO CALL IN TO SPEAK TO HER FATHER PER HIS REQUEST.
[2020-02-12] VITALS: BP 110/55
--- NOTE | 2020-02-12 00:50 | NUR ---
PATIENT PLACED ON BIPAP FOR HS
--- NOTE | 2020-02-12 03:50 | NUR ---
24 HR chart check completed.
[2020-02-12 05:58] LABS: ALBUMIN 2.7 gm/dl (3.1-4.5); ALKALINE PHOSPHATASE 68 U/L (45-117); BUN 14 mg/dl (7-24); CHLORIDE 93 mmol/L (98-107); CPK 16 U/L (39-308); POTASSIUM 3.6 mmol/L (3.5-5.1); SGOT/AST 22 IU/L (3-35); SGPT/ALT 31 U/L (12-78); SODIUM 136 mmol/L (136-145)
[2020-02-12 06:14] LABS: HEMATOCRIT 30.3 % (42.0-52.0); MEAN CELL VOLUME 105.9 fl (80.0-94.0); MEAN CORPUSCULAR HGB 32.5 pg (27.0-31.0); MEAN CORPUSCULAR HGB CONC 30.7 g/dl (33.0-37.0); MEAN PLATELET VOLUME 8.8 fl (9.6-12.3); PLATELET COUNT AUTOMATED 185 10*3/uL (130-400); RED BLOOD COUNT 2.86 10*6/uL (4.50-5.90); RED CELL DISTRI WIDTH 13.7 % (0-14.5); WHITE BLOOD COUNT 4.1 10*3/uL (4.8-10.8)
[2020-02-12 06:50] LABS: INTERNATIONAL NORM RATIO 2.3 (2.0-3.5)
[2020-02-12 07:35] LABS: ATYPICAL LYMPHS 1 % (0-0); PLATELET SUFFICIENCY NORMAL (NORMAL); TOTAL CELLS COUNTED 100 #CELLS
[2020-02-12 08:00] VITALS: BP 100/56
--- NOTE | 2020-02-12 08:10 | NUR ---
PT RESTING IN BED ON BIPAP, RESP-EASY AND REGULAR AT THIS TIME. TOOK OFF BIPAP AND PLACED ON HIGHFLOW OXYGEN FOR MEDICATION PASS AND ATE BREAKFAST. PLACED BACK ON BIPAP. TOLERATED EVERYTHING WELL. PT HAD LARGE BM CLEANED UP AND PULLED UP IN BED. NEW IV STARTED. IV started left hand with #24 angiocath after 1 attempts. The IV site was prepped with Chloraprep. Heparin lock attached. Sterile dressing applied. Patient tolerated precedure well. Procedure performed according to [facility] policy & procedure. CALL LIGHT IN REACH. BED ALARM ON. SEE SHIFT ASSESSMENT. KILLIAN FINK
[2020-02-12 08:16] LABS: ABG BASE EXCESS 16.9 mmol/L (-2.0-2.0); ARTERIAL BLOOD GAS PH 7.444 (7.35-7.45)
--- NOTE | 2020-02-12 09:00 | NUR ---
Discharge plan is for patient to return to [facility] where he is a LTC resident. He is on bipap/15L O2. When medically stable he will return to [facility]. regional planner following.
--- NOTE | 2020-02-12 09:55 | NUR ---
SHARITA WOODS IN TO SEE PT. BIPAP IN USE. PT TOLERATING. CALL LIGHT IN REACH.
--- NOTE | 2020-02-12 10:00 | NUR ---
SHARITA WOODS AWARE BP 100/56. HOLD BP MED AT THIS TIME.
--- NOTE | 2020-02-12 11:32 | NUR ---
PT ANXIOUS IN BED, UPSET REGARDING COVID, TALKED WITH PT. HE HAD PREVIOUSLY TALKED WITH HIS DAUGHTER. MEDICATED WITH ATIVAN PO PER PRN ORDER, SEE EMAR. ALSO C/O LEFT KNEE PAIN, RATES PAIN 10 ON PAIN SCALE 0-10. MEDICATED WITH TYLENOL PO PER PRN ORDER, SEE EMAR. CALL [facility] IN REACH.
[2020-02-12 12:00] VITALS: BP 154/48
--- NOTE | 2020-02-12 12:25 | NUR ---
PT RESTING IN BED. STATES MEDICATION HELPS. RESP-EASY AND REGULAR. OXYGEN IN USE. WAITING FOR LUNCH. CALL LIGHT IN REACH.
--- NOTE | 2020-02-12 14:00 | NUR ---
AIDE IN WITH PT REPOSITIONING AND BATHING PT. [facility].
[2020-02-12 16:00] VITALS: BP 144/68
[2020-02-12 20:00] VITALS: BP 127/53
--- NOTE | 2020-02-12 20:10 | NUR ---
PT SEEN AND ASSESSED. PT APPEARS TO BE IN BETTER SPIRITS TONIGHT. PT STATES HE IS FEELING BETTER TODAY. PT VERBALIZES NO C/O AT THIS TIME.
[2020-02-13] VITALS: BP 154/64
--- NOTE | 2020-02-13 01:21 | NUR ---
24 HR chart check completed.
[2020-02-13 06:32] LABS: BASO % 0.2 % (0.0-1.0); HEMATOCRIT 32.1 % (42.0-52.0); LYMPH # 1.4 10*3/uL (1.3-4.4); LYMPH % 27.7 % (27.0-41.0); MEAN CELL VOLUME 106.6 fl (80.0-94.0); MEAN CORPUSCULAR HGB 32.6 pg (27.0-31.0); MEAN CORPUSCULAR HGB CONC 30.5 g/dl (33.0-37.0); MEAN PLATELET VOLUME 8.6 fl (9.6-12.3); MONO # 0.5 10*3/uL (0.1-1.0); MONO % 10.5 % (3.0-9.0); NEUT # 2.9 10*3/uL (2.3-7.9); NEUT % 58.6 % (47.0-73.0); NUCLEATED RED BLOOD CELL 0.4 % (0.0-0.0); PLATELET COUNT AUTOMATED 206 10*3/uL (130-400); RED BLOOD COUNT 3.01 10*6/uL (4.50-5.90); RED CELL DISTRI WIDTH 13.5 % (0-14.5); WHITE BLOOD COUNT 4.9 10*3/uL (4.8-10.8)
[2020-02-13 06:38] LABS: ALBUMIN 2.8 gm/dl (3.1-4.5); BUN 15 mg/dl (7-24); CHLORIDE 96 mmol/L (98-107); CREATININE 0.39 mg/dL (0.70-1.30); LDH 202 U/L (87-241); POTASSIUM 3.8 mmol/L (3.5-5.1); SGOT/AST 22 IU/L (3-35); SGPT/ALT 42 U/L (12-78); SODIUM 137 mmol/L (136-145)
[2020-02-13 06:40] LABS: ALKALINE PHOSPHATASE 65 U/L (45-117)
[2020-02-13 06:55] LABS: CPK 24 U/L (39-308)
--- NOTE | 2020-02-13 07:00 | NUR ---
DR ALBERTS CALLED WITH CRITICAL CARBON DIOXIDE. NO NEW ORDERS AT THIS TIME
[2020-02-13 08:50] LABS: ARTERIAL BLOOD GAS PH 7.402 (7.35-7.45)
[2020-02-13 09:00] VITALS: BP 148/71
[2020-02-13 09:13] LABS: INTERNATIONAL NORM RATIO 2.5 (2.0-3.5)
[2020-02-13 12:00] VITALS: BP 118/51
[2020-02-13 16:00] VITALS: BP 134/59
[2020-02-14] VITALS: BP 135/61
[2020-02-14 06:46] LABS: HEMATOCRIT 32.5 % (42.0-52.0); MEAN CELL VOLUME 105.2 fl (80.0-94.0); MEAN CORPUSCULAR HGB CONC 31.4 g/dl (33.0-37.0); MEAN PLATELET VOLUME 8.7 fl (9.6-12.3); NUCLEATED RED BLOOD CELL 0.3 % (0.0-0.0); PLATELET COUNT AUTOMATED 242 10*3/uL (130-400); RED BLOOD COUNT 3.09 10*6/uL (4.50-5.90); RED CELL DISTRI WIDTH 13.5 % (0-14.5); WHITE BLOOD COUNT 5.8 10*3/uL (4.8-10.8)
[2020-02-14 07:09] LABS: ALBUMIN 2.7 gm/dl (3.1-4.5); ALKALINE PHOSPHATASE 67 U/L (45-117); BUN 16 mg/dl (7-24); CHLORIDE 97 mmol/L (98-107); CREATININE 0.39 mg/dL (0.70-1.30); LDH 186 U/L (87-241); POTASSIUM 3.3 mmol/L (3.5-5.1); SGOT/AST 17 IU/L (3-35); SGPT/ALT 40 U/L (12-78); SODIUM 137 mmol/L (136-145); TOTAL PROTEIN 8.1 gm/dL (6.4-8.2)
[2020-02-14 07:24] LABS: PLATELET SUFFICIENCY NORMAL (NORMAL); TOTAL CELLS COUNTED 100 #CELLS
[2020-02-14 07:25] LABS: POLYCHROMASIA SLIGHT
[2020-02-14 07:30] LABS: CPK 15 U/L (39-308)
[2020-02-14 08:00] VITALS: BP 144/62
[2020-02-14 09:42] LABS: ARTERIAL BLOOD GAS PH 7.389 (7.35-7.45)
[2020-02-14 11:52] VITALS: BP 148/62
--- NOTE | 2020-02-14 12:45 | NUR ---
PT TOLERATED BIPAP WELL FROM BREAKFAST UNTIL NOW. PLACED BACK ON 15 L HIGH FLOW NC TO EAT LUNCH.
[2020-02-14 16:00] VITALS: BP 146/60
--- NOTE | 2020-02-14 16:09 | NUR ---
PT RESTING IN BED WITH NO S/S DISTRESS NOTED. ON 15 L O2 AT THIS TIME, DENIES PAIN. CALL LIGHT IN REACH.
--- NOTE | 2020-02-14 16:38 | NUR ---
PT. OFF BIPAP, ON HFNC AT 15L, WAITING ON DINNER.
--- NOTE | 2020-02-14 19:26 | NUR ---
24 HR CHART CHECK COMPLETE.
--- NOTE | 2020-02-14 19:49 | NUR ---
Pt off BiPap at the time. Pt resting on 15L HFNC. Pt will get his meds and use the restroom and then is willing to go on his BiPap. SpO2 98%
[2020-02-14 20:00] VITALS: BP 138/54
--- NOTE | 2020-02-14 20:10 | NUR ---
PT IS SITTING UP IN BED WATCHING TV AT THIS TIME. 15L NC IN USE, PULSE OX 96%. RESPS ARE EASY AND NONLABORED. NO C/O VOICED. BED LOW, CALL LIGHT WITHIN REACH. WILL CONTINUE TO MONITOR.
[2020-02-15] VITALS: BP 157/66
--- NOTE | 2020-02-15 02:56 | NUR ---
Pt resting on BiPap. Alarms on and audible.
[2020-02-15 06:48] LABS: HEMATOCRIT 34.4 % (42.0-52.0); MEAN CELL VOLUME 106.8 fl (80.0-94.0); MEAN CORPUSCULAR HGB 32.3 pg (27.0-31.0); MEAN CORPUSCULAR HGB CONC 30.2 g/dl (33.0-37.0); MEAN PLATELET VOLUME 8.5 fl (9.6-12.3); NUCLEATED RED BLOOD CELL 0.3 % (0.0-0.0); PLATELET COUNT AUTOMATED 290 10*3/uL (130-400); RED BLOOD COUNT 3.22 10*6/uL (4.50-5.90); RED CELL DISTRI WIDTH 13.6 % (0-14.5); WHITE BLOOD COUNT 6.8 10*3/uL (4.8-10.8)
[2020-02-15 07:08] LABS: ALBUMIN 2.9 gm/dl (3.1-4.5); BUN 18 mg/dl (7-24); CHLORIDE 103 mmol/L (98-107); CREATININE 0.45 mg/dL (0.70-1.30); POTASSIUM 3.8 mmol/L (3.5-5.1); SGOT/AST 19 IU/L (3-35); SGPT/ALT 40 U/L (12-78); SODIUM 139 mmol/L (136-145)
[2020-02-15 07:12] LABS: ALKALINE PHOSPHATASE 72 U/L (45-117); LDH 232 U/L (87-241); TOTAL PROTEIN 8.4 gm/dL (6.4-8.2)
[2020-02-15 07:13] LABS: CPK 27 U/L (39-308)
[2020-02-15 08:00] VITALS: BP 140/60
[2020-02-15 08:01] LABS: TOTAL CELLS COUNTED 100 #CELLS
[2020-02-15 08:02] LABS: PLATELET SUFFICIENCY NORMAL (NORMAL)
--- NOTE | 2020-02-15 08:19 | NUR ---
PT MEDICATED WITH PO TYLENOL PER PRN ORDER FOR C/O GENERALIZED DISCOMFORT. WILL MONITOR EFFECTIVENESS.
[2020-02-15 09:05] LABS: INTERNATIONAL NORM RATIO 3.2 (2.0-3.5)
--- NOTE | 2020-02-15 09:12 | NUR ---
Discharge plan is for patient to return to [facility] where he is a LTC resident. He is on bipap/15L O2. When medically stable he will return to [facility]. menu planner following.
--- NOTE | 2020-02-15 09:19 | NUR ---
TYLENOL RELIEVING PAIN PER PT. WILL CONTINUE TO MONITOR.
--- NOTE | 2020-02-15 10:58 | NUR ---
Nutritional Support Services Note: Appetite is good for meals, he is eating 100% of all meals. Ht.5'8 Wt.342# IBW 144-722. No other recommendations at this time. BMI>40, pt declines a need for a weight loss diet as this time. Will follow. Kristie Blankenship Rdn Ld
--- NOTE | 2020-02-15 11:20 | NUR ---
PATIENT IS LTC AT [facility]. CORSETS SALESPERSON FAXED UPDATES TO [facility] FOR REVIEW.
[2020-02-15 12:00] VITALS: BP 126/49
[2020-02-15 16:00] VITALS: BP 117/67
--- NOTE | 2020-02-15 16:32 | NUR ---
PT MEDICATED WITH PO TYLENOL PER PRN ORDER FOR C/O GENERALIZED PAIN/DISCOMFORT. WILL MONITOR EFFECTIVENESS.
--- NOTE | 2020-02-15 17:32 | NUR ---
TYLENOL EFFECTIVE PER PT. WILL CONTINUE TO MONITOR.
--- NOTE | 2020-02-15 19:55 | NUR ---
PT RESTING IN BED, REPOSITIONED, ASSISTED TO USE URINAL. OXYGEN IN USE. NO SOB NOTED. NO C/O AT THIS TIME. TOLERATING IV ANTIBIOTICS WITH NO PROBLEM. CALL LIGHT IN REACH. SEE SHIFT ASSESSMENT.
[2020-02-15 20:00] VITALS: BP 129/60
--- NOTE | 2020-02-15 20:10 | NUR ---
Pt not on BiPap. Pt resting on 15L HFNC
--- NOTE | 2020-02-15 22:45 | NUR ---
SLEEPING IN BED, AWAKENS EASILY. OXYGEN IN USE. NO C/O AT THIS TIME. CALL LIGHT IN REACH.
[2020-02-16] VITALS: BP 136/61
--- NOTE | 2020-02-16 | NUR ---
RESPIRATORY IN ROOM WITH PT. BIPAP PLACED. NO C/O AT THIS TIME. CALL LIGHT IN REACH. SEE SHIFT ASSESSMENT. BED ALARM ON.
--- NOTE | 2020-02-16 03:59 | NUR ---
Pt off BiPap at this time
--- NOTE | 2020-02-16 05:30 | NUR ---
PT REPOSITIONED IN BED. RESP-EASY AND REGULAR AT THIS TIME. OXYGEN IN USE. PULSE OX 95%. NO C/O AT THIS TIME. CALL LIGHT IN REACH. BED ALARM ON.
[2020-02-16 06:53] LABS: HEMATOCRIT 33.3 % (42.0-52.0); MEAN CELL VOLUME 108.1 fl (80.0-94.0); MEAN CORPUSCULAR HGB 33.1 pg (27.0-31.0); MEAN CORPUSCULAR HGB CONC 30.6 g/dl (33.0-37.0); MEAN PLATELET VOLUME 8.7 fl (9.6-12.3); NUCLEATED RED BLOOD CELL 0.4 % (0.0-0.0); PLATELET COUNT AUTOMATED 305 10*3/uL (130-400); RED BLOOD COUNT 3.08 10*6/uL (4.50-5.90); RED CELL DISTRI WIDTH 13.9 % (0-14.5)
[2020-02-16 08:00] VITALS: BP 149/64
[2020-02-16 08:26] LABS: TOTAL CELLS COUNTED 100 #CELLS
[2020-02-16 08:27] LABS: PLATELET SUFFICIENCY NORMAL (NORMAL)
--- NOTE | 2020-02-16 09:08 | NUR ---
Discharge plan is for patient to return to [facility] where he is a LTC resident. He is on bipap/15L O2. When medically stable he will return to [facility]. convention planner following.
[2020-02-16 12:00] VITALS: BP 129/57
[2020-02-16 16:00] VITALS: BP 158/54
[2020-02-16 20:00] VITALS: BP 129/59
[2020-02-17] VITALS: BP 123/63
[2020-02-17 06:31] LABS: HEMATOCRIT 33.5 % (42.0-52.0); MEAN CORPUSCULAR HGB 32.6 pg (27.0-31.0); MEAN CORPUSCULAR HGB CONC 30.7 g/dl (33.0-37.0); MEAN PLATELET VOLUME 8.3 fl (9.6-12.3); NUCLEATED RED BLOOD CELL 0.3 % (0.0-0.0); PLATELET COUNT AUTOMATED 312 10*3/uL (130-400); RED BLOOD COUNT 3.16 10*6/uL (4.50-5.90); RED CELL DISTRI WIDTH 13.8 % (0-14.5); WHITE BLOOD COUNT 9.8 10*3/uL (4.8-10.8)
[2020-02-17 06:42] LABS: INTERNATIONAL NORM RATIO 4.2 (2.0-3.5)
[2020-02-17 07:55] LABS: ATYPICAL LYMPHS 1 % (0-0); OVALOCYTES FEW; PLATELET SUFFICIENCY NORMAL (NORMAL); POLYCHROMASIA SLIGHT; TOTAL CELLS COUNTED 100 #CELLS
[2020-02-17 08:00] VITALS: BP 143/71
--- NOTE | 2020-02-17 09:17 | NUR ---
PATIENT TAKEN OFF BIPAP AND PLACED ON HI ROQUE NC AT 15L.
[2020-02-17 12:00] VITALS: BP 157/66
--- NOTE | 2020-02-17 15:00 | NUR ---
ASSUMED CARE OF PT. PT LYING IN BED, NO COMPLAINTS. O2 INTACT.
[2020-02-17 16:00] VITALS: BP 91/66
--- NOTE | 2020-02-17 17:00 | NUR ---
PT SITTING UP EATING DINNER. NO COMPLAINTS
[2020-02-17 20:00] VITALS: BP 131/63
[2020-02-18] VITALS: BP 147/59
[2020-02-18 06:40] LABS: HEMATOCRIT 33.2 % (42.0-52.0); MEAN CELL VOLUME 107.4 fl (80.0-94.0); MEAN CORPUSCULAR HGB 33.3 pg (27.0-31.0); MEAN PLATELET VOLUME 8.5 fl (9.6-12.3); PLATELET COUNT AUTOMATED 312 10*3/uL (130-400); RED BLOOD COUNT 3.09 10*6/uL (4.50-5.90); RED CELL DISTRI WIDTH 14.2 % (0-14.5); WHITE BLOOD COUNT 10.4 10*3/uL (4.8-10.8)
[2020-02-18 06:44] LABS: INTERNATIONAL NORM RATIO 2.9 (2.0-3.5)
[2020-02-18 08:00] VITALS: BP 130/60
[2020-02-18 08:15] LABS: TOTAL CELLS COUNTED 100 #CELLS
[2020-02-18 08:16] LABS: PLATELET SUFFICIENCY NORMAL (NORMAL); POLYCHROMASIA SLIGHT; STOMATOCYTE FEW
[2020-02-18 12:00] VITALS: BP 162/79
--- NOTE | 2020-02-18 13:16 | NUR ---
SPUTUM REMAINS UNOBTAINED PATIENT IS NOT COUGHING.
[2020-02-18 16:00] VITALS: BP 133/56
--- NOTE | 2020-02-18 19:00 | NUR ---
ASSUMED CARE OF PT. VOICES NO COMPLAINTS.CALL LIGHT IN REACH
[2020-02-18 20:00] VITALS: BP 119/65
--- NOTE | 2020-02-18 21:00 | NUR ---
IN TO SEE PT. NO COMPLAINTS. CALL LIGHT IN REACH. O2 INTACT
[2020-02-19] VITALS: BP 154/85
--- NOTE | 2020-02-19 | NUR ---
IN TO SEE PT. NO COMPLAINTS.
--- NOTE | 2020-02-19 03:30 | NUR ---
PT ASLEEP AT THIS TIME.
[2020-02-19 06:42] LABS: HEMATOCRIT 35.4 % (42.0-52.0); MEAN CORPUSCULAR HGB CONC 30.5 g/dl (33.0-37.0); MEAN PLATELET VOLUME 8.5 fl (9.6-12.3); NUCLEATED RED BLOOD CELL 0.3 % (0.0-0.0); PLATELET COUNT AUTOMATED 334 10*3/uL (130-400); RED BLOOD COUNT 3.37 10*6/uL (4.50-5.90); RED CELL DISTRI WIDTH 13.7 % (0-14.5); WHITE BLOOD COUNT 10.7 10*3/uL (4.8-10.8)
[2020-02-19 07:25] LABS: INTERNATIONAL NORM RATIO 1.9 (2.0-3.5)
[2020-02-19 08:00] VITALS: BP 165/70
[2020-02-19 08:16] LABS: PLATELET SUFFICIENCY NORMAL (NORMAL); TOTAL CELLS COUNTED 100 #CELLS
--- NOTE | 2020-02-19 08:40 | NUR ---
PATIENT'S O2 DECREASED FROM 15L HIGH-FLOW DOWN TO 12L. CONT.PULSE OX MAINTAINED. PULSE OX RANGING BETWEEN 96-98% VIA 12L HIGH-FLOW. RT NOTIFIED. WILL CONTINUE TO MONITOR. VSS. CALL LIGHT WITHIN REACH. SEE SHIFT ASSESSMENT.
--- NOTE | 2020-02-19 11:35 | NUR ---
THIS NURSE FACE-TIMED AT THIS TIME. SPOKE WITH PATIENT.
--- NOTE | 2020-02-19 11:45 | NUR ---
02 DECREASED FROM 12 TO 10L HIGH-FLOW PER . WILL CONTINUE TO MONITOR. VSS.
[2020-02-19 12:00] VITALS: BP 126/58
[2020-02-19 16:00] VITALS: BP 110/58
[2020-02-19 20:00] VITALS: BP 114/45
--- NOTE | 2020-02-19 20:19 | NUR ---
24 HR chart check completed.
--- NOTE | 2020-02-19 21:00 | NUR ---
AWAKE, RESTING IN BED WITH NO ACUTE DISTRESS NOTED. RESPIRATIONS EASY. LUNGS DIMINISHED. PULSE OX 96% 6L HIGH FLOW, CONT PULSE OX MAINTAINED. CLAIMS NON-PROD COUGH. CALL LIGHT WITHIN REACH. NO VOICED COMPLAINTS. BED ALARM MAINTAINED FOR SAFETY
[2020-02-20] VITALS: BP 134/62
--- NOTE | 2020-02-20 | NUR ---
RESTING WITH EYES CLOSED. RESPIRATIONS EASY. CONT PULSE OX MAINTAINED 94% 6L HIGH FLOW. RESP TO PLACE PATIENT ON BI-PAP. CALL LIGHT WITHIN REACH. NO VOICED COMPLAINTS. BED ALARM MAINTAINED FOR SAFETY
--- NOTE | 2020-02-20 01:36 | NUR ---
patient requesting to be taken off bipap. 10l nc in use
--- NOTE | 2020-02-20 02:47 | NUR ---
PT OFF BIPAP. PT STATES HE IS UNABLE TO SLEEP
--- NOTE | 2020-02-20 04:00 | NUR ---
AWAKE, RESPIRATIONS EASY. PULSE OX 95% 8L HIGH FLOW. CALL LIGHT WITHIN REACH
--- NOTE | 2020-02-20 06:00 | NUR ---
AWAKE, WATCHING TV WITH NO ACUTE DISTRESS NOTED. RESPIRATIONS EASY. O2 REMAINS IN USE AT 10L HIGH FLOW WITH CONT PULSE OX MAINTAINED. CALL LIGHT WITHIN REACH. NO VOICED COMPLAINTS. BED ALARM MAINTAINED FOR SAFETY
[2020-02-20 08:00] VITALS: BP 152/62
[2020-02-20 12:00] VITALS: BP 124/68
[2020-02-20 16:00] VITALS: BP 138/67
[2020-02-20 20:00] VITALS: BP 120/56
--- NOTE | 2020-02-20 20:15 | NUR ---
PT RESTING IN BED, REPOSITIONED AND ASSISTED TO USE URINAL. RESP-EASY AND REGULAR AT THIS TIME. OXYGEN IN USE. SEE SHIFT ASSESSMENT. BED ALARM ON.
--- NOTE | 2020-02-20 23:00 | NUR ---
PT PLACED ON BIPAP. NO C/O AT THIS TIME. CALL LIGHT IN REACH. BED ALARM ON.
[2020-02-21] VITALS: BP 119/60
--- NOTE | 2020-02-21 00:10 | NUR ---
PT RESTING IN BED WITH EYES CLOSED. RESP-EASY AND REGULAR. BIPAP IN USE. CALL LIGHT IN REACH. SEE SHIFT ASSESSMENT.
--- NOTE | 2020-02-21 04:00 | NUR ---
RESTING IN BED. RESP-EASY AND REGULAR. BIPAP IN USE. CALL LIGHT IN REACH.
[2020-02-21 08:00] VITALS: BP 143/57
[2020-02-21 08:15] LABS: INTERNATIONAL NORM RATIO 1.8 (2.0-3.5)
--- NOTE | 2020-02-21 10:40 | NUR ---
PATIENT CURRENTLY OFF BIPAP ON 10L HI ROQUE 10L SPO2 96% HR 85.
[2020-02-21 12:00] VITALS: BP 116/61
[2020-02-21 16:00] VITALS: BP 95/56
[2020-02-21 20:00] VITALS: BP 117/54
--- NOTE | 2020-02-21 20:10 | NUR ---
24 HR chart check completed.
--- NOTE | 2020-02-21 21:00 | NUR ---
RESTING IN BED WATCHING TV WITH NO ACUTE DISTRESS NOTED. RESPIRATIONS EASY. LUNGS DIMINISHED. PULSE OX 97% 8L HIGH FLOW. CLAIMS COUGH PROD FOR CLEAR. CALL LIGHT WITHIN REACH. NO VOICED COMPLAINTS
--- NOTE | 2020-02-21 22:08 | NUR ---
MEDICATED WITH TYLENOL PER PRN ORDER FOR COMPLAINTS OF GENERALIZED ACHES. CALL LIGHT WITHIN REACH. WILL MONITOR
--- NOTE | 2020-02-21 23:00 | NUR ---
STATES RELIEF FROM EARLIER MEDS, RESTING IN BED WITH BI-PAP IN USE. CALL LIGHT WITHIN REACH. NO FURTHER VOICED COMPLAINTS
[2020-02-22] VITALS: BP 131/57
--- NOTE | 2020-02-22 | NUR ---
SLEEPING. NO ACUTE DISTRESS NOTED. RESPIRATIONS EASY. VSS. PULSE OX 98% ON BI-PAP. CALL LIGHT WITHIN REACH.
--- NOTE | 2020-02-22 02:00 | NUR ---
PATIENT CALLING OUT, REMOVED SELF FROM BI-PAP. O2 REPLACED AT 8L HIGH FLOW WITH CONT PULSE OX MAINTAINED. CALL LIGHT WITHIN REACH.
--- NOTE | 2020-02-22 04:00 | NUR ---
SLEEPING. PULSE OX 100% 8L HIGH FLOW. CALL LIGHT WITHIN REACH.
--- NOTE | 2020-02-22 06:00 | NUR ---
SLEPT THROUGHOUT NIGHT WITH NO ACUTE DISTRESS NOTED. RESPIRATIONS EASY. O2 REMAINS IN USE AT 8L HIGH FLOW. CALL LIGHT WITHIN REACH. NO VOICED COMPLAINTS THIS SHIFT
[2020-02-22 08:00] VITALS: BP 136/63
--- NOTE | 2020-02-22 09:05 | NUR ---
PATIENT IS LTC AT [facility]. PATIENT CAN RETURN WHEN MEDICALLY STABLE. FILER REPAIRER FAXED UPDATES TO [facility] FOR REVIEW.
--- NOTE | 2020-02-22 10:59 | NUR ---
FIGHT MANAGER FAXED REFERRAL TO [facility] FOR REVIEW.
[2020-02-22 12:00] VITALS: BP 121/74
[2020-02-22 16:00] VITALS: BP 135/67
--- NOTE | 2020-02-22 19:10 | NUR ---
REPORT RECEIVED. PT LYING IN BED. O2 8LHF INTACT. NO COMPLAINTS
[2020-02-22 20:00] VITALS: BP 121/54
--- NOTE | 2020-02-22 22:00 | NUR ---
PT IN BED. VOICES NO COMPLAINTS. CALL LIGHT IN REACH OF PT
[2020-02-23] VITALS: BP 138/80
--- NOTE | 2020-02-23 01:00 | NUR ---
SLEEPING. BIPAP IN PLACE
--- NOTE | 2020-02-23 03:17 | NUR ---
BIPAP INTACT. NO DISTRESS NOTED. PT ASLEEP
--- NOTE | 2020-02-23 03:30 | NUR ---
PT REQUEST TO BE OFF BIPAP AT THIS TIME.
--- NOTE | 2020-02-23 04:10 | NUR ---
PT BACK ON BIPAP AT THIS TIME.
--- NOTE | 2020-02-23 05:19 | NUR ---
24 HR chart check completed.
[2020-02-23 08:00] VITALS: BP 130/71
[2020-02-23 08:07] LABS: BASO % 0.1 % (0.0-1.0); EOS # 0.1 10*3/uL (0.0-0.4); EOS % 1.3 % (1.0-4.0); HEMATOCRIT 34.2 % (42.0-52.0); LYMPH % 22.8 % (27.0-41.0); MEAN CELL VOLUME 107.9 fl (80.0-94.0); MEAN CORPUSCULAR HGB 32.8 pg (27.0-31.0); MEAN CORPUSCULAR HGB CONC 30.4 g/dl (33.0-37.0); MEAN PLATELET VOLUME 8.7 fl (9.6-12.3); MONO # 0.7 10*3/uL (0.1-1.0); MONO % 7.9 % (3.0-9.0); PLATELET COUNT AUTOMATED 208 10*3/uL (130-400); RED BLOOD COUNT 3.17 10*6/uL (4.50-5.90); RED CELL DISTRI WIDTH 14.3 % (0-14.5); WHITE BLOOD COUNT 8.9 10*3/uL (4.8-10.8)
[2020-02-23 08:18] LABS: INTERNATIONAL NORM RATIO 2.1 (2.0-3.5)
[2020-02-23 08:34] LABS: BUN 13 mg/dl (7-24); CHLORIDE 96 mmol/L (98-107); CREATININE 0.37 mg/dL (0.70-1.30); POTASSIUM 4.4 mmol/L (3.5-5.1); SODIUM 140 mmol/L (136-145)
--- NOTE | 2020-02-23 11:08 | NUR ---
PATIENT HAS BEEN ACCEPTED TO [facility]. INSPECTOR POISING CONTACTED PATIENTS CAROLYNE FONTENOT. INSPECTOR POISING EXPLAINED REFERRAL TO [facility] AND PATIENTS ACCEPTANCE. INSPECTOR POISING EXPLAINED [facility] TO HER. PATIENTS DAUGHTER IS AGREEABLE. PATIENTS DAUGHTER REQUESTED A CALL FROM THE DOCTORS BECAUSE SHE HAS NOT HEARD ANY UPDATES SINCE 02/18/2020. INSPECTOR POISING REACHED OUT TO DR. AMARAL VIA [employer] REGARDING PATIENTS CARE. INSPECTOR POISING NOTIFIED LEANN BAI OF PATIENTS DAUGHTER BEING AGREEABLE FOR TRANSFER. SHE WILL REACH OUT TO HER SHORTLY AND WILL LET THIS INSPECTOR POISING KNOW A GOOD TIME TO HAVE THIS PATIENT TRANSFERED.
[2020-02-23] MEDS ORDERED: JANTOVEN6 M1 PO (11:50)
[2020-02-23] MEDS ORDERED: OXYGEN NAS (11:50)
[2020-02-23] MEDS ORDERED: LOSARTAN POTASS50 M1 PO (11:50)
[2020-02-23 12:00] VITALS: BP 108/51
--- NOTE | 2020-02-23 13:22 | NUR ---
PATIENT NOTIFIED OF DISCHARGE. PER JUSTIN BAI, THEY NEED A LATER DISCHARGE. HEART COORDINATOR SPOKE [facility] AND ARRANGED FOR AN 8PM TRANSPORT. HEART COORDINATOR NOTIFIED [facility], [facility], WC/RN STATION, AND CONTACTED PATIENTS DAUGHTER CORIE AND EXPLAINED DISCHARGE/TRANSPORT. HEART COORDINATOR TO FAX DEMOGRAPHICS TO [facility]. HEART COORDINATOR TO FAX DISCHARGE ORDERS TO [facility].
[2020-02-23 16:00] VITALS: BP 135/53
--- NOTE | 2020-02-23 17:41 | NUR ---
TYLENOL GIVEN FOR BILATERAL SHOULDER PAIN. WILL CONTINUE TO MONITOR.
--- NOTE | 2020-02-23 18:24 | NUR ---
REPORT GIVEN TO [facility] TRANSFER AT 8PM.
--- NOTE | 2020-02-23 20:50 | NUR ---
Discharge instructions reviewed with patient/family. Patient receptive and verbalizes understanding. Follow-up care arranged. Written instructions given to patient/family. NATASHA DASILVA
== END 2020-02-23 21:31 | DRG 871 ==
LOC: ED 18:57 → 4E 22:27 → EDHOLD 22:27 → 4E 02-09 00:43
PROVIDERS: Emergency Medicine; Internal Medicine; Internal Medicine Critical Care Medicine; Registered Nurse; ADMIT Family Medicine; ATTEND Family Medicine
PROC: 5A0935A Assistance with Respiratory Ventilation, Less than 24 Consecutive Hours, High Flow/Velocity Cannula (ICD-10-PCS; principal; 2020-02-08)
PROC: 5A09357 Assistance with Respiratory Ventilation, Less than 24 Consecutive Hours, Continuous Positive Airway Pressure (ICD-10-PCS; 2020-02-09)
PROC: 5A0945A Assistance with Respiratory Ventilation, 24-96 Consecutive Hours, High Flow/Velocity Cannula (ICD-10-PCS; 2020-02-09)
PROC: 5A0935A Assistance with Respiratory Ventilation, Less than 24 Consecutive Hours, High Flow/Velocity Cannula (ICD-10-PCS; 2020-02-10)
PROC: XW033E5 Introduction of Remdesivir Anti-infective into Peripheral Vein, Percutaneous Approach, New Technology Group 5 (ICD-10-PCS; 2020-02-10)
PROC: 5A0935A Assistance with Respiratory Ventilation, Less than 24 Consecutive Hours, High Flow/Velocity Cannula (ICD-10-PCS; 2020-02-11)
PROC: 5A09357 Assistance with Respiratory Ventilation, Less than 24 Consecutive Hours, Continuous Positive Airway Pressure (ICD-10-PCS; 2020-02-11)
PROC: 5A09357 Assistance with Respiratory Ventilation, Less than 24 Consecutive Hours, Continuous Positive Airway Pressure (ICD-10-PCS; 2020-02-12)
PROC: 5A0935A Assistance with Respiratory Ventilation, Less than 24 Consecutive Hours, High Flow/Velocity Cannula (ICD-10-PCS; 2020-02-13)
PROC: 5A09357 Assistance with Respiratory Ventilation, Less than 24 Consecutive Hours, Continuous Positive Airway Pressure (ICD-10-PCS; 2020-02-13)
PROC: 5A0935A Assistance with Respiratory Ventilation, Less than 24 Consecutive Hours, High Flow/Velocity Cannula (ICD-10-PCS; 2020-02-14)
PROC: 5A09357 Assistance with Respiratory Ventilation, Less than 24 Consecutive Hours, Continuous Positive Airway Pressure (ICD-10-PCS; 2020-02-14)
PROC: 5A0935A Assistance with Respiratory Ventilation, Less than 24 Consecutive Hours, High Flow/Velocity Cannula (ICD-10-PCS; 2020-02-15)
PROC: 5A09357 Assistance with Respiratory Ventilation, Less than 24 Consecutive Hours, Continuous Positive Airway Pressure (ICD-10-PCS; 2020-02-15)
DX: A41.9 Sepsis, unspecified organism (principal); U07.1 COVID-19; G93.41 Metabolic encephalopathy; J96.22 Acute and chronic respiratory failure with hypercapnia; J96.21 Acute and chronic respiratory failure with hypoxia; J12.89 Other viral pneumonia; I50.22 Chronic systolic (congestive) heart failure; E87.1 Hypo-osmolality and hyponatremia; J44.0 Chronic obstructive pulmonary disease with (acute) lower respiratory infection; E44.0 Moderate protein-calorie malnutrition; D68.59 Other primary thrombophilia; E87.4 Mixed disorder of acid-base balance; Z68.43 Body mass index [BMI] 50.0-59.9, adult; R65.20 Severe sepsis without septic shock; R73.9 Hyperglycemia, unspecified; I48.91 Unspecified atrial fibrillation; E87.8 Other disorders of electrolyte and fluid balance, not elsewhere classified; I11.0 Hypertensive heart disease with heart failure; E78.5 Hyperlipidemia, unspecified; N40.0 Benign prostatic hyperplasia without lower urinary tract symptoms; M17.11 Unilateral primary osteoarthritis, right knee; I73.9 Peripheral vascular disease, unspecified; T50.2X5A Adverse effect of carbonic-anhydrase inhibitors, benzothiadiazides and other diuretics, initial encounter; D53.9 Nutritional anemia, unspecified; I25.10 Atherosclerotic heart disease of native coronary artery without angina pectoris; E66.01 Morbid (severe) obesity due to excess calories; T45.515A Adverse effect of anticoagulants, initial encounter; Y92.89 Other specified places as the place of occurrence of the external cause; Z95.1 Presence of aortocoronary bypass graft; Z99.81 Dependence on supplemental oxygen; I25.2 Old myocardial infarction; Z87.891 Personal history of nicotine dependence; Z81.1 Family history of alcohol abuse and dependence; Z79.899 Other long term (current) drug therapy; Z79.82 Long term (current) use of aspirin; Z80.8 Family history of malignant neoplasm of other organs or systems; Z86.14 Personal history of Methicillin resistant Staphylococcus aureus infection

== ENCOUNTER 2020-08-12 12:09 | Inpatient (IN) | payer MEDICARE, OTHER ==
[~2020-08-12] VITALS: Ht 165.1 cm; Wt 143.0 kg
[~2020-08-12 12:09] MED LIST changes: +COLACE100 MG PO; +Coumadin10 MG PO; +Coumadin7.5 MG PO; +DULCOLAX10 M1 R; +EFFER-K25 MEQ PO; +JANTOVEN6 M1 PO; +LASIX20 MG PO; +LEXAPRO20 MG PO; +LOSARTAN POTASS50 M1 PO; +NEURONTIN100 MG PO; +OXYGEN NAS; +TRAMADOL HCL50 MG PO; +TRAZODONE50 MG PO; +TRELEGY ELLIPT1 EACH INH; +TYLENOL325 M3 PO; +VALSARTAN160 MG PO; +VENT7GM INH; +WELLBUTRIN XL150 MG PO
[2020-08-12 12:20] VITALS: BP 126/57
[2020-08-12 12:48] LABS: BASO % 0.3 % (0.0-1.0); EOS # 0.1 10*3/uL (0.0-0.4); HEMATOCRIT 31.9 % (42.0-52.0); LYMPH # 2.1 10*3/uL (1.3-4.4); LYMPH % 26.5 % (27.0-41.0); MEAN CELL VOLUME 101.6 fl (80.0-94.0); MEAN CORPUSCULAR HGB 32.5 pg (27.0-31.0); MEAN PLATELET VOLUME 8.4 fl (9.6-12.3); MONO # 0.7 10*3/uL (0.1-1.0); MONO % 9.2 % (3.0-9.0); NEUT # 4.9 10*3/uL (2.3-7.9); NEUT % 62.4 % (47.0-73.0); PLATELET COUNT AUTOMATED 198 10*3/uL (130-400); RED BLOOD COUNT 3.14 10*6/uL (4.50-5.90); RED CELL DISTRI WIDTH 13.7 % (0-14.5); WHITE BLOOD COUNT 7.9 10*3/uL (4.8-10.8)
[2020-08-12 13:07] LABS: ALBUMIN 3.2 gm/dl (3.1-4.5); ALKALINE PHOSPHATASE 124 U/L (45-117); BUN 9 mg/dl (7-24); CHLORIDE 101 mmol/L (98-107); POTASSIUM 3.7 mmol/L (3.5-5.1); SGOT/AST 8 IU/L (3-35); SGPT/ALT 14 U/L (12-78); SODIUM 139 mmol/L (136-145); TOTAL PROTEIN 9.4 gm/dL (6.4-8.2)
[2020-08-12 13:13] LABS: TROPONIN I < 0.015 ng/ml (<0.045)
[2020-08-12 13:45] LABS: BILIRUBIN Negative (Negative); BLOOD Trace-Intact (Negative); CLARITY Turbid (Clear); COLOR Yellow (Yellow); GLUCOSE Negative (Negative); KETONE Negative (Negative); LEUKO ESTERASE Negative (Negative); NITRITE Negative (Negative); UROBILINOGEN 0.2 E.U./dl (0.0-1.0)
[2020-08-12 14:19] LABS: ABG BASE EXCESS 13.9 mmol/L (-2.0-2.0); ARTERIAL BLOOD GAS PH 7.395 (7.35-7.45); ARTERIAL BLOOD GAS PO2 81.5 (80-90)
[2020-08-12 16:52] VITALS: BP 113/76
[2020-08-12 20:00] VITALS: BP 133/74
[2020-08-12] MEDS ORDERED: BUPROPION HYDR100 MG PO (22:42)
[2020-08-12] MEDS ORDERED: CRESTOR10 M1 PO (22:43)
[2020-08-12] MEDS ORDERED: ELIQUIS5 M1 PO (22:45)
[2020-08-12] MEDS ORDERED: HYDROCODONE-AC1 EAC1 PO (22:46)
[2020-08-12] MEDS ORDERED: LINZESS145 MC1 PO (22:48)
[2020-08-12] MEDS ORDERED: LIDOCAINE28.35 GM T (22:48)
[2020-08-12] MEDS ORDERED: MIRALAX17 GM PO (22:50)
[2020-08-12] MEDS ORDERED: MINERAL OIL R (22:50)
[2020-08-12] MEDS ORDERED: GERI-KOT8.6 MG PO (22:52)
[2020-08-12] MEDS ORDERED: DIOVAN320 MG PO (22:54)
[2020-08-12] MEDS ORDERED: VITAMIN D250 MC1 PO (22:55)
[2020-08-12] MEDS ORDERED: ZOLOFT25 MG PO (22:55)
[2020-08-12] MEDS ORDERED: VOLTAREN100 GM T (22:56)
[2020-08-12] MEDS ORDERED: HYDROXYZINE HCL25 MG PO (22:59)
[2020-08-13] VITALS: BP 148/74
[2020-08-13 04:57] LABS: BASO % 0.1 % (0.0-1.0); HEMATOCRIT 31.9 % (42.0-52.0); LYMPH % 14.1 % (27.0-41.0); MEAN CELL VOLUME 102.6 fl (80.0-94.0); MEAN CORPUSCULAR HGB 31.8 pg (27.0-31.0); MEAN PLATELET VOLUME 8.6 fl (9.6-12.3); MONO # 0.2 10*3/uL (0.1-1.0); MONO % 3.1 % (3.0-9.0); NEUT % 81.8 % (47.0-73.0); PLATELET COUNT AUTOMATED 194 10*3/uL (130-400); RED BLOOD COUNT 3.11 10*6/uL (4.50-5.90); RED CELL DISTRI WIDTH 13.7 % (0-14.5); WHITE BLOOD COUNT 7.4 10*3/uL (4.8-10.8)
[2020-08-13 05:11] LABS: BUN 10 mg/dl (7-24); CHLORIDE 102 mmol/L (98-107); CREATININE 0.41 mg/dL (0.70-1.30); SODIUM 140 mmol/L (136-145)
[2020-08-13 05:22] LABS: THYROID STIM HORMONE (HS) 0.751 uIU/ml (0.358-4.75)
[2020-08-13 08:20] VITALS: BP 143/98
[2020-08-13 12:24] VITALS: BP 137/62
[2020-08-13 16:07] VITALS: BP 145/63
[2020-08-13 20:00] VITALS: BP 123/63
[2020-08-14] VITALS: BP 128/63
[2020-08-14 06:04] LABS: ALKALINE PHOSPHATASE 105 U/L (45-117); BUN 16 mg/dl (7-24); CHLORIDE 100 mmol/L (98-107); CREATININE 0.49 mg/dL (0.70-1.30); POTASSIUM 3.8 mmol/L (3.5-5.1); SGOT/AST 6 IU/L (3-35); SGPT/ALT 13 U/L (12-78); SODIUM 138 mmol/L (136-145); TOTAL PROTEIN 8.9 gm/dL (6.4-8.2)
[2020-08-14 06:06] LABS: BASO % 0.1 % (0.0-1.0); HEMATOCRIT 29.3 % (42.0-52.0); LYMPH # 1.1 10*3/uL (1.3-4.4); LYMPH % 14.3 % (27.0-41.0); MEAN CORPUSCULAR HGB 32.3 pg (27.0-31.0); MEAN CORPUSCULAR HGB CONC 30.7 g/dl (33.0-37.0); MEAN PLATELET VOLUME 8.7 fl (9.6-12.3); MONO # 0.7 10*3/uL (0.1-1.0); MONO % 8.4 % (3.0-9.0); NEUT % 76.4 % (47.0-73.0); PLATELET COUNT AUTOMATED 206 10*3/uL (130-400); RED BLOOD COUNT 2.79 10*6/uL (4.50-5.90); RED CELL DISTRI WIDTH 13.8 % (0-14.5); WHITE BLOOD COUNT 7.9 10*3/uL (4.8-10.8)
[2020-08-14 08:00] VITALS: BP 126/61
[2020-08-14 12:00] VITALS: BP 145/72
[2020-08-14 16:00] VITALS: BP 153/70
[2020-08-14 20:00] VITALS: BP 154/70
[2020-08-15] VITALS: BP 140/63
[2020-08-15 06:09] LABS: ALBUMIN 3.2 gm/dl (3.1-4.5); ALKALINE PHOSPHATASE 97 U/L (45-117); BUN 20 mg/dl (7-24); CHLORIDE 98 mmol/L (98-107); CREATININE 0.43 mg/dL (0.70-1.30); SGOT/AST 9 IU/L (3-35); SGPT/ALT 15 U/L (12-78); SODIUM 138 mmol/L (136-145); TOTAL PROTEIN 9.1 gm/dL (6.4-8.2)
[2020-08-15 06:15] LABS: BASO % 0.1 % (0.0-1.0); LYMPH # 1.1 10*3/uL (1.3-4.4); LYMPH % 14.8 % (27.0-41.0); MEAN CELL VOLUME 103.2 fl (80.0-94.0); MONO # 0.4 10*3/uL (0.1-1.0); NEUT # 5.7 10*3/uL (2.3-7.9); NEUT % 79.1 % (47.0-73.0); PLATELET COUNT AUTOMATED 217 10*3/uL (130-400); RED BLOOD COUNT 2.81 10*6/uL (4.50-5.90); RED CELL DISTRI WIDTH 13.8 % (0-14.5); WHITE BLOOD COUNT 7.2 10*3/uL (4.8-10.8)
[2020-08-15 08:00] VITALS: BP 150/82
[2020-08-15 12:00] VITALS: BP 126/59
[2020-08-15 16:00] VITALS: BP 139/63
[2020-08-15 20:00] VITALS: BP 145/71
[2020-08-16] VITALS: BP 140/64
[2020-08-16 08:00] VITALS: BP 133/77
[2020-08-16 08:31] LABS: ALBUMIN 3.2 gm/dl (3.1-4.5); ALKALINE PHOSPHATASE 99 U/L (45-117); BUN 21 mg/dl (7-24); CHLORIDE 97 mmol/L (98-107); CREATININE 0.49 mg/dL (0.70-1.30); POTASSIUM 3.3 mmol/L (3.5-5.1); SGOT/AST 11 IU/L (3-35); SGPT/ALT 25 U/L (12-78); SODIUM 139 mmol/L (136-145); TOTAL PROTEIN 9.2 gm/dL (6.4-8.2)
[2020-08-16 12:00] VITALS: BP 145/76
[2020-08-16 16:00] VITALS: BP 163/77
[2020-08-16 20:03] VITALS: BP 148/71
[2020-08-17 06:21] LABS: BASO % 0.1 % (0.0-1.0); HEMATOCRIT 31.9 % (42.0-52.0); LYMPH # 1.2 10*3/uL (1.3-4.4); MEAN CELL VOLUME 102.9 fl (80.0-94.0); MEAN CORPUSCULAR HGB 31.9 pg (27.0-31.0); MEAN PLATELET VOLUME 8.8 fl (9.6-12.3); MONO # 0.5 10*3/uL (0.1-1.0); MONO % 6.6 % (3.0-9.0); NEUT # 5.9 10*3/uL (2.3-7.9); NEUT % 75.6 % (47.0-73.0); PLATELET COUNT AUTOMATED 258 10*3/uL (130-400); RED CELL DISTRI WIDTH 13.8 % (0-14.5); WHITE BLOOD COUNT 7.8 10*3/uL (4.8-10.8)
[2020-08-17 06:39] LABS: CHLORIDE 100 mmol/L (98-107); POTASSIUM 4.1 mmol/L (3.5-5.1); SODIUM 139 mmol/L (136-145)
[2020-08-17 06:46] LABS: ALBUMIN 3.1 gm/dl (3.1-4.5); ALKALINE PHOSPHATASE 97 U/L (45-117); BUN 23 mg/dl (7-24); CREATININE 0.46 mg/dL (0.70-1.30); SGOT/AST 15 IU/L (3-35); SGPT/ALT 37 U/L (12-78); TOTAL PROTEIN 9.3 gm/dL (6.4-8.2)
[2020-08-17 08:00] VITALS: BP 153/54
[2020-08-17 12:00] VITALS: BP 153/63
[2020-08-17 16:00] VITALS: BP 154/59
[2020-08-17 18:07] LABS: A/G RATIO 0.7 (0.7-1.7); ALBUMIN 3.6 g/dL (2.9-4.4); ALPHA-1-GLOBULIN 0.3 g/dL (0.0-0.4); BETA GLOBULIN 1.1 g/dL (0.7-1.3); GAMMA GLOBULIN 2.5 g/dL (0.4-1.8); GLOBULIN, TOTAL 4.9 g/dL (2.2-3.9); M-SPIKE 2.2 g/dL (Not Observed); TOTAL PROTEIN, SERUM 8.5 g/dL (6.0-8.5)
[2020-08-17 20:00] VITALS: BP 124/67
[2020-08-18] VITALS: BP 137/62
[2020-08-18 05:52] LABS: ALBUMIN 3.2 gm/dl (3.1-4.5); ALKALINE PHOSPHATASE 97 U/L (45-117); BUN 26 mg/dl (7-24); CHLORIDE 100 mmol/L (98-107); CREATININE 0.54 mg/dL (0.70-1.30); POTASSIUM 4.1 mmol/L (3.5-5.1); SGOT/AST 10 IU/L (3-35); SGPT/ALT 37 U/L (12-78); SODIUM 136 mmol/L (136-145); TOTAL PROTEIN 9.3 gm/dL (6.4-8.2)
[2020-08-18 06:05] LABS: BASO % 0.1 % (0.0-1.0); HEMATOCRIT 32.1 % (42.0-52.0); LYMPH # 1.4 10*3/uL (1.3-4.4); LYMPH % 14.8 % (27.0-41.0); MEAN CELL VOLUME 103.2 fl (80.0-94.0); MEAN CORPUSCULAR HGB 32.2 pg (27.0-31.0); MEAN CORPUSCULAR HGB CONC 31.2 g/dl (33.0-37.0); MEAN PLATELET VOLUME 8.8 fl (9.6-12.3); MONO # 0.4 10*3/uL (0.1-1.0); MONO % 4.6 % (3.0-9.0); NEUT # 7.2 10*3/uL (2.3-7.9); PLATELET COUNT AUTOMATED 276 10*3/uL (130-400); RED BLOOD COUNT 3.11 10*6/uL (4.50-5.90); RED CELL DISTRI WIDTH 13.8 % (0-14.5); WHITE BLOOD COUNT 9.2 10*3/uL (4.8-10.8)
[2020-08-18 08:00] VITALS: BP 168/82
[2020-08-18 12:00] VITALS: BP 155/73
[2020-08-18] MEDS ORDERED: KLOR-CON M2020 ME1 PO (13:34)
[2020-08-18] MEDS ORDERED: NEURONTIN100 MG PO (13:34)
[2020-08-18] MEDS ORDERED: MIACALCIN200 UNIT/1 NAS ×2 (13:34→16:00)
[2020-08-18] MEDS ORDERED: DOXYCYCLINE100 M3 PO (13:34)
[2020-08-18] MEDS ORDERED: HYDROCODONE-AC1 EAC1 PO (13:34)
[2020-08-18] MEDS ORDERED: PREDNISONE10 MG PO (13:34)
[2020-08-18] MEDS ORDERED: REMEDY CALAZIME4 GM T (13:34)
[2020-08-18 16:08] LABS: ALBUMIN, URINE RANDOM 43.9 % (.); ALPHA-1-GLOBULIN, URINE 3.8 % (.); ALPHA-2-GLOBULIN, URINE 14.1 % (.); GAMMA GLOBULIN, URINE 25.7 % (.); M-SPIKE % Comment: % (Not Observed); PROTEIN,TOTAL - URINE RANDOM 20.7 mg/dL (Not Estab.)
== END 2020-08-18 19:08 | DRG 177 ==
LOC: ED 12:09 → 4E 14:33 → EDHOLD 14:33 → 4E 15:16
PROVIDERS: Family Medicine; Internal Medicine; ADMIT Student in an Organized Health Care Education/Training Program; ATTEND Student in an Organized Health Care Education/Training Program
PROC: 5A09357 Assistance with Respiratory Ventilation, Less than 24 Consecutive Hours, Continuous Positive Airway Pressure (ICD-10-PCS; principal; 2020-08-13)
PROC: 5A09357 Assistance with Respiratory Ventilation, Less than 24 Consecutive Hours, Continuous Positive Airway Pressure (ICD-10-PCS; 2020-08-14)
PROC: 5A09357 Assistance with Respiratory Ventilation, Less than 24 Consecutive Hours, Continuous Positive Airway Pressure (ICD-10-PCS; 2020-08-15)
PROC: 5A09357 Assistance with Respiratory Ventilation, Less than 24 Consecutive Hours, Continuous Positive Airway Pressure (ICD-10-PCS; 2020-08-16)
PROC: 5A09357 Assistance with Respiratory Ventilation, Less than 24 Consecutive Hours, Continuous Positive Airway Pressure (ICD-10-PCS; 2020-08-17)
PROC: 5A09357 Assistance with Respiratory Ventilation, Less than 24 Consecutive Hours, Continuous Positive Airway Pressure (ICD-10-PCS; 2020-08-18)
DX: J69.0 Pneumonitis due to inhalation of food and vomit (principal); G93.41 Metabolic encephalopathy; I50.23 Acute on chronic systolic (congestive) heart failure; J96.22 Acute and chronic respiratory failure with hypercapnia; E44.0 Moderate protein-calorie malnutrition; Z68.43 Body mass index [BMI] 50.0-59.9, adult; N40.0 Benign prostatic hyperplasia without lower urinary tract symptoms; J44.9 Chronic obstructive pulmonary disease, unspecified; E78.5 Hyperlipidemia, unspecified; R73.9 Hyperglycemia, unspecified; E83.52 Hypercalcemia; R77.8 Other specified abnormalities of plasma proteins; I11.0 Hypertensive heart disease with heart failure; D53.9 Nutritional anemia, unspecified; E66.01 Morbid (severe) obesity due to excess calories; F32.9 Major depressive disorder, single episode, unspecified; F41.9 Anxiety disorder, unspecified; Z66 Do not resuscitate; Z51.5 Encounter for palliative care; Z87.891 Personal history of nicotine dependence; I25.2 Old myocardial infarction; Z95.1 Presence of aortocoronary bypass graft; Z79.01 Long term (current) use of anticoagulants; Z79.82 Long term (current) use of aspirin; Z79.899 Other long term (current) drug therapy; Z81.1 Family history of alcohol abuse and dependence; Z80.9 Family history of malignant neoplasm, unspecified; Z86.19 Personal history of other infectious and parasitic diseases; Z20.822 Contact with and (suspected) exposure to COVID-19